=== PATIENT | female | born 1945 | race Caucasian/White ===

== ENCOUNTER 2016-11-10 15:19 | Inpatient (IN) | payer MEDICARE, OTHER ==
[~2016-11-10] VITALS: Ht 157.4 cm; Wt 50.3 kg
[2016-11-10 15:47] VITALS: BP 156/94
[2016-11-10 16:25] LABS: BASO # 0.1 10*3/uL (0.0-0.1); BASO % 0.9 % (0.0-1.0); EOS # 0.1 10*3/uL (0.0-0.4); EOS % 1.4 % (1.0-4.0); HEMATOCRIT 52.3 % (37.0-47.0); HEMOGLOBIN 17.2 g/dl (12.0-16.0); LYMPH # 1.6 10*3/uL (1.3-4.4); LYMPH % 17.9 % (27.0-41.0); MEAN CELL VOLUME 91.9 fl (81.0-99.0); MEAN CORPUSCULAR HGB 30.2 pg (27.0-31.0); MEAN CORPUSCULAR HGB CONC 32.9 g/dl (33.0-37.0); MEAN PLATELET VOLUME 9.8 fl (9.6-12.3); MONO # 0.6 10*3/uL (0.1-1.0); MONO % 6.8 % (3.0-9.0); NEUT # 6.3 10*3/uL (2.3-7.9); NEUT % 72.8 % (47.0-73.0); PLATELET COUNT AUTOMATED 175 10*3/uL (130-400); RED BLOOD COUNT 5.69 10*6/uL (4.10-5.10); RED CELL DISTRI WIDTH 13.7 % (0-14.5); WHITE BLOOD COUNT 8.7 10*3/uL (4.8-10.8)
[2016-11-10 16:34] LABS: PROTHROMBIN TIME 10.3 SECONDS (9.0-12.4)
[2016-11-10 16:41] LABS: ALBUMIN 3.8 gm/dl (3.1-4.5); ALKALINE PHOSPHATASE 100 U/L (45-117); BILIRUBIN, TOTAL 1.4 mg/dl (0.2-1.0); BUN 16 mg/dl (7-24); C-REACTIVE PROTEIN 0.74 MG/DL (0-0.3); CARBON DIOXIDE 25 mmol/L (21-32); CHLORIDE 104 mmol/L (98-107); CKMB 0.7 ng/ml (0.5-3.6); CPK 49 U/L (26-192); EST GLOM FILT AFRICAN AMERICAN > 60 ml/min; GLUCOSE 112 mg/dL (65-99); MAGNESIUM 2.4 mg/dL (1.5-2.1); POTASSIUM 4.7 mmol/L (3.5-5.1); SGOT/AST 18 IU/L (3-35); SGPT/ALT 17 U/L (12-78); SODIUM 139 mmol/L (136-145); TOTAL PROTEIN 7.4 gm/dL (6.4-8.2)
[2016-11-10 16:44] LABS: TROPONIN I < 0.015 ng/ml (<0.045)
[2016-11-10 17:01] LABS: BILIRUBIN NEGATIVE (NEGATIVE); BLOOD TRACE-LYSED (NEGATIVE); CLARITY CLEAR (CLEAR); COLOR YELLOW (YELLOW); GLUCOSE NEGATIVE (NEGATIVE); KETONE TRACE (NEGATIVE); LEUKO ESTERASE TRACE (NEGATIVE); NITRITE POSITIVE (NEGATIVE); PH 5.5 (5.0-9.0); PROTEIN NEGATIVE (NEGATIVE); SPECIFIC GRAVITY 1.015 (1.005-1.030); UROBILINOGEN 0.2 E.U./dl (0.2-1.0)
[2016-11-10 17:10] LABS: BACTERIA 2+; EPITHELIAL CELLS 35-40; URINE REFLEX COMMENT YES (NO)
[2016-11-10 18:22] LABS: LA>2 REFLEX 2 HR DRAW NOW
[2016-11-10 19:45] VITALS: BP 150/86
[2016-11-10 20:30] VITALS: BP 140/82; BP 140/86
[2016-11-10 20:53] LABS: BILIRUBIN NEGATIVE (NEGATIVE); BLOOD TRACE-LYSED (NEGATIVE); CLARITY CLEAR (CLEAR); COLOR YELLOW (YELLOW); GLUCOSE NEGATIVE (NEGATIVE); KETONE TRACE (NEGATIVE); LEUKO ESTERASE NEGATIVE (NEGATIVE); NITRITE POSITIVE (NEGATIVE); PROTEIN NEGATIVE (NEGATIVE); SPECIFIC GRAVITY <= 1.005 (1.005-1.030); UROBILINOGEN 0.2 E.U./dl (0.2-1.0)
[2016-11-10 21:02] LABS: BACTERIA TRACE; RBC 0-2 rbc/hpf (0-2); URINE REFLEX COMMENT YES (NO)
[2016-11-11] VITALS: BP 140/71
[2016-11-11 03:53] LABS: BASO % 0.5 % (0.0-1.0); EOS # 0.1 10*3/uL (0.0-0.4); EOS % 2.1 % (1.0-4.0); LYMPH % 17.1 % (27.0-41.0); MEAN CELL VOLUME 90.8 fl (81.0-99.0); MEAN CORPUSCULAR HGB 30.3 pg (27.0-31.0); MEAN CORPUSCULAR HGB CONC 33.4 g/dl (33.0-37.0); MEAN PLATELET VOLUME 9.9 fl (9.6-12.3); MONO # 0.5 10*3/uL (0.1-1.0); MONO % 9.1 % (3.0-9.0); PLATELET COUNT AUTOMATED 131 10*3/uL (130-400); RED BLOOD COUNT 4.88 10*6/uL (4.10-5.10); RED CELL DISTRI WIDTH 13.5 % (0-14.5); WHITE BLOOD COUNT 5.6 10*3/uL (4.8-10.8)
[2016-11-11 03:56] LABS: HEMATOCRIT 44.3 % (37.0-47.0); HEMOGLOBIN 14.8 g/dl (12.0-16.0)
[2016-11-11 04:10] LABS: ALKALINE PHOSPHATASE 78 U/L (45-117); BILIRUBIN, TOTAL 1.3 mg/dl (0.2-1.0); BUN 14 mg/dl (7-24); CARBON DIOXIDE 27 mmol/L (21-32); CHLORIDE 108 mmol/L (98-107); CHOLESTEROL 163 mg/dL (<200); EST GLOM FILT AFRICAN AMERICAN > 60 ml/min; GLUCOSE 99 mg/dL (65-99); HDL CHOLESTEROL 70 mg/dl (40-60); LDL CHOLESTEROL 75 mg/dL (9-159); SGOT/AST 8 IU/L (3-35); SGPT/ALT 16 U/L (12-78); SODIUM 143 mmol/L (136-145); TOTAL PROTEIN 5.8 gm/dL (6.4-8.2); TRIGLYCERIDES 88 mg/dl (<150); VLDL CHOLESTEROL 18 mg/dL (6-40)
[2016-11-11 04:11] LABS: FREE T4 1.13 ng/dl (0.76-1.46)
[2016-11-11 07:09] LABS: VITAMIN D, 25-HYDROXY 21.3 ng/mL (30-100)
[2016-11-11 07:10] LABS: FOLIC ACID 11.11 ng/mL (>5.38)
[2016-11-11 08:00] VITALS: BP 140/72
[2016-11-11 12:00] VITALS: BP 118/82
[2016-11-11 16:00] VITALS: BP 142/86
[2016-11-11 20:00] VITALS: BP 146/78
[2016-11-12] VITALS: BP 143/80
[2016-11-12 06:25] LABS: BASO # 0.1 10*3/uL (0.0-0.1); BASO % 0.9 % (0.0-1.0); EOS # 0.2 10*3/uL (0.0-0.4); EOS % 2.9 % (1.0-4.0); HEMATOCRIT 46.7 % (37.0-47.0); HEMOGLOBIN 15.2 g/dl (12.0-16.0); LYMPH # 1.9 10*3/uL (1.3-4.4); LYMPH % 27.9 % (27.0-41.0); MEAN CELL VOLUME 92.8 fl (81.0-99.0); MEAN CORPUSCULAR HGB 30.2 pg (27.0-31.0); MEAN CORPUSCULAR HGB CONC 32.5 g/dl (33.0-37.0); MEAN PLATELET VOLUME 9.8 fl (9.6-12.3); MONO # 0.6 10*3/uL (0.1-1.0); MONO % 8.3 % (3.0-9.0); NEUT # 4.1 10*3/uL (2.3-7.9); NEUT % 59.7 % (47.0-73.0); PLATELET COUNT AUTOMATED 164 10*3/uL (130-400); RED BLOOD COUNT 5.03 10*6/uL (4.10-5.10); RED CELL DISTRI WIDTH 13.7 % (0-14.5); WHITE BLOOD COUNT 6.9 10*3/uL (4.8-10.8)
[2016-11-12 07:04] LABS: CHLORIDE 111 mmol/L (98-107); POTASSIUM 3.7 mmol/L (3.5-5.1); SODIUM 146 mmol/L (136-145)
[2016-11-12 07:15] LABS: ALBUMIN 3.2 gm/dl (3.1-4.5); ALKALINE PHOSPHATASE 89 U/L (45-117); BILIRUBIN, TOTAL 0.6 mg/dl (0.2-1.0); BUN 10 mg/dl (7-24); CARBON DIOXIDE 26 mmol/L (21-32); EST GLOM FILT AFRICAN AMERICAN > 60 ml/min; GLUCOSE 95 mg/dL (65-99); SGOT/AST 14 IU/L (3-35); SGPT/ALT 16 U/L (12-78); TOTAL PROTEIN 6.4 gm/dL (6.4-8.2)
[2016-11-12 08:00] VITALS: BP 156/88
[2016-11-12 12:00] VITALS: BP 169/92
[2016-11-12 16:00] VITALS: BP 165/89
[2016-11-12] MEDS ORDERED: CIPRO500 MG PO (17:12)
[2016-11-12] MEDS ORDERED: D-1000 185 MG-11 TAB PO (17:12)
== END 2016-11-12 18:28 | disposition home or self-care (01) | DRG 871 ==
LOC: ED 15:19 → EDHOLD 18:52 → 4E 18:52
PROVIDERS: Emergency Medicine; Hospitalist; Internal Medicine Hospice and Palliative Medicine
DX: A41.9 Sepsis, unspecified organism (principal); N17.0 Acute kidney failure with tubular necrosis; E44.0 Moderate protein-calorie malnutrition; E83.41 Hypermagnesemia; D75.1 Secondary polycythemia; N39.0 Urinary tract infection, site not specified; R65.20 Severe sepsis without septic shock; R73.9 Hyperglycemia, unspecified; B96.20 Unspecified Escherichia coli [E. coli] as the cause of diseases classified elsewhere; Z90.49 Acquired absence of other specified parts of digestive tract; Z90.710 Acquired absence of both cervix and uterus; Z87.891 Personal history of nicotine dependence; Z82.3 Family history of stroke; Z82.49 Family history of ischemic heart disease and other diseases of the circulatory system; Z88.0 Allergy status to penicillin; Z68.20 Body mass index [BMI] 20.0-20.9, adult

== ENCOUNTER 2016-11-16 12:29 | Emergency (ER) | payer MEDICARE, OTHER ==
[~2016-11-16] VITALS: Wt 50.3 kg
[~2016-11-16 12:29] MED LIST: CIPRO500 MG PO; D-1000 185 MG-11 TAB PO
[2016-11-16 13:04] LABS: BASO % 0.4 % (0.0-1.0); EOS % 0.3 % (1.0-4.0); HEMATOCRIT 43.5 % (37.0-47.0); HEMOGLOBIN 14.6 g/dl (12.0-16.0); LYMPH # 1.3 10*3/uL (1.3-4.4); LYMPH % 12.9 % (27.0-41.0); MEAN CELL VOLUME 90.2 fl (81.0-99.0); MEAN CORPUSCULAR HGB 30.3 pg (27.0-31.0); MEAN CORPUSCULAR HGB CONC 33.6 g/dl (33.0-37.0); MONO # 0.7 10*3/uL (0.1-1.0); MONO % 7.3 % (3.0-9.0); NEUT # 7.9 10*3/uL (2.3-7.9); NEUT % 78.9 % (47.0-73.0); PLATELET COUNT AUTOMATED 149 10*3/uL (130-400); RED BLOOD COUNT 4.82 10*6/uL (4.10-5.10); RED CELL DISTRI WIDTH 13.6 % (0-14.5)
[2016-11-16 13:23] LABS: ALBUMIN 3.1 gm/dl (3.1-4.5); ALKALINE PHOSPHATASE 75 U/L (45-117); BILIRUBIN, TOTAL 1.2 mg/dl (0.2-1.0); BUN 11 mg/dl (7-24); CARBON DIOXIDE 28 mmol/L (21-32); CHLORIDE 105 mmol/L (98-107); EST GLOM FILT AFRICAN AMERICAN > 60 ml/min; GLUCOSE 102 mg/dL (65-99); POTASSIUM 3.8 mmol/L (3.5-5.1); SGOT/AST 14 IU/L (3-35); SGPT/ALT 20 U/L (12-78); SODIUM 143 mmol/L (136-145); TOTAL PROTEIN 6.1 gm/dL (6.4-8.2)
[2016-11-16 13:34] LABS: BILIRUBIN NEGATIVE (NEGATIVE); BLOOD NEGATIVE (NEGATIVE); CLARITY SL CLOUDY (CLEAR); COLOR YELLOW (YELLOW); GLUCOSE NEGATIVE (NEGATIVE); KETONE NEGATIVE (NEGATIVE); LEUKO ESTERASE 1+ (NEGATIVE); NITRITE NEGATIVE (NEGATIVE); PH 6.5 (5.0-9.0); PROTEIN NEGATIVE (NEGATIVE); SPECIFIC GRAVITY 1.015 (1.005-1.030); UROBILINOGEN 0.2 E.U./dl (0.2-1.0)
[2016-11-16 14:02] LABS: BACTERIA 1+; URINE REFLEX COMMENT YES (NO)
[2016-11-16] MEDS ORDERED: BACTRIM DS 8001 TA1 PO (14:26)
[2016-11-16] MEDS ORDERED: PYRIDIUM200 M1 PO (14:26)
== END 2016-11-16 14:36 | disposition home or self-care (01) ==
LOC: ED 12:29
PROVIDERS: Emergency Medicine
DX: N39.0 Urinary tract infection, site not specified (principal); Z90.49 Acquired absence of other specified parts of digestive tract; Z87.891 Personal history of nicotine dependence; Z88.0 Allergy status to penicillin

== ENCOUNTER → 2017-04-23 | Outpatient (CLI) | payer MEDICARE, OTHER ==
[~2017-04-23] MED LIST changes: +BACTRIM DS 8001 TA1 PO; +PYRIDIUM200 M1 PO
== END | disposition home or self-care (01) ==
LOC: MAMMO 11:52
DX: Z12.31 Encounter for screening mammogram for malignant neoplasm of breast (principal); Z13.820 Encounter for screening for osteoporosis; N95.9 Unspecified menopausal and perimenopausal disorder; Z90.710 Acquired absence of both cervix and uterus

== ENCOUNTER → 2017-09-02 | Outpatient (CLI) | payer MEDICARE, OTHER ==
[2017-09-02 11:41] LABS: BASO # 0.1 10*3/uL (0.0-0.1); BASO % 0.6 % (0.0-1.0); EOS % 0.1 % (1.0-4.0); HEMATOCRIT 47.8 % (37.0-47.0); LYMPH # 1.3 10*3/uL (1.3-4.4); LYMPH % 14.8 % (27.0-41.0); MEAN CORPUSCULAR HGB 30.1 pg (27.0-31.0); MEAN CORPUSCULAR HGB CONC 33.5 g/dl (33.0-37.0); MEAN PLATELET VOLUME 9.6 fl (9.6-12.3); MONO # 0.8 10*3/uL (0.1-1.0); NEUT # 6.8 10*3/uL (2.3-7.9); NEUT % 75.3 % (47.0-73.0); PLATELET COUNT AUTOMATED 210 10*3/uL (130-400); RED BLOOD COUNT 5.31 10*6/uL (4.10-5.10); RED CELL DISTRI WIDTH 13.5 % (0-14.5); WHITE BLOOD COUNT 9.1 10*3/uL (4.8-10.8)
[2017-09-02 12:29] LABS: ALKALINE PHOSPHATASE 105 U/L (45-117); BUN 14 mg/dl (7-24); CHLORIDE 96 mmol/L (98-107); CREATININE 0.93 mg/dL (0.55-1.02); POTASSIUM 3.3 mmol/L (3.5-5.1); SGOT/AST 16 IU/L (3-35); SGPT/ALT 20 U/L (12-78); SODIUM 138 mmol/L (136-145); TOTAL PROTEIN 7.2 gm/dL (6.4-8.2)
== END | disposition home or self-care (01) ==
LOC: LAB 11:18
PROVIDERS: Internal Medicine
DX: J20.9 Acute bronchitis, unspecified (principal)

== ENCOUNTER → 2018-08-25 | Outpatient (CLI) | payer MEDICARE, OTHER ==
[~2018-08-25] MED LIST changes: +DOXYCYCLINE100 M3 PO; +FOSAMAX70 M1 PO; +MUCINEX ER600 MG PO; +NORCO 5-325 TA1 EACH PO; +PREDNISONE10 MG PO; +PREDNISONE20 M1 PO; +PROVENTIL HFA6.7 GM INH; +TESSALON PERLE100 M1 PO; +VITAMIN D31000 UNIT PO; +ZITHROMAX500 MG PO
== END | disposition home or self-care (01) ==
LOC: RESCLI 12:44
DX: J43.9 Emphysema, unspecified (principal); R09.89 Other specified symptoms and signs involving the circulatory and respiratory systems; Z88.0 Allergy status to penicillin

== ENCOUNTER → 2018-08-31 | Outpatient (CLI) | payer MEDICARE, OTHER ==
[~2018-08-31] MED LIST changes: -DOXYCYCLINE100 M3 PO; -FOSAMAX70 M1 PO; -MUCINEX ER600 MG PO; -PREDNISONE10 MG PO; -PREDNISONE20 M1 PO; -PROVENTIL HFA6.7 GM INH; -TESSALON PERLE100 M1 PO; -VITAMIN D31000 UNIT PO; -ZITHROMAX500 MG PO
== END | disposition home or self-care (01) ==
LOC: RESCLI 01:48
DX: J20.9 Acute bronchitis, unspecified (principal); Z79.899 Other long term (current) drug therapy; Z88.0 Allergy status to penicillin; Z90.710 Acquired absence of both cervix and uterus

== ENCOUNTER → 2018-10-29 | Outpatient (CLI) | payer MEDICARE, OTHER ==
[~2018-10-29] MED LIST changes: +DOXYCYCLINE100 M3 PO; +FOSAMAX70 M1 PO; +MUCINEX ER600 MG PO; +PREDNISONE10 MG PO; +PREDNISONE20 M1 PO; +PROVENTIL HFA6.7 GM INH; +TESSALON PERLE100 M1 PO; +VITAMIN D31000 UNIT PO; +ZITHROMAX500 MG PO
[2018-10-29 13:04] LABS: BASO # 0.1 10*3/uL (0.0-0.1); BASO % 0.7 % (0.0-1.0); EOS % 0.6 % (1.0-4.0); HEMATOCRIT 51.9 % (37.0-47.0); HEMOGLOBIN 16.9 g/dl (12.0-16.0); LYMPH # 1.5 10*3/uL (1.3-4.4); LYMPH % 21.5 % (27.0-41.0); MEAN CELL VOLUME 93.3 fl (81.0-99.0); MEAN CORPUSCULAR HGB 30.4 pg (27.0-31.0); MEAN CORPUSCULAR HGB CONC 32.6 g/dl (33.0-37.0); MEAN PLATELET VOLUME 9.8 fl (9.6-12.3); MONO # 0.5 10*3/uL (0.1-1.0); MONO % 6.5 % (3.0-9.0); NEUT # 4.9 10*3/uL (2.3-7.9); NEUT % 70.6 % (47.0-73.0); PLATELET COUNT AUTOMATED 202 10*3/uL (130-400); RED BLOOD COUNT 5.56 10*6/uL (4.10-5.10); RED CELL DISTRI WIDTH 13.9 % (0-14.5); WHITE BLOOD COUNT 6.9 10*3/uL (4.8-10.8)
[2018-10-29 13:29] LABS: ALBUMIN 3.7 gm/dl (3.1-4.5); ALKALINE PHOSPHATASE 152 U/L (45-117); CHLORIDE 102 mmol/L (98-107); CHOLESTEROL 189 mg/dL (<200); CREATININE 1.01 mg/dL (0.55-1.02); HDL CHOLESTEROL 73 mg/dl (40-60); LDL CHOLESTEROL 93 mg/dL (9-159); POTASSIUM 4.2 mmol/L (3.5-5.1); SGOT/AST 16 IU/L (3-35); SGPT/ALT 20 U/L (12-78); SODIUM 139 mmol/L (136-145); TOTAL PROTEIN 7.4 gm/dL (6.4-8.2); TRIGLYCERIDES 114 mg/dl (<150); VLDL CHOLESTEROL 23 mg/dL (6-40)
[2018-10-29 13:36] LABS: BUN 25 mg/dl (7-24)
== END | disposition home or self-care (01) ==
LOC: LAB 11:17 → RESCLI 11:17
PROVIDERS: Student in an Organized Health Care Education/Training Program
DX: M80.00XD Age-related osteoporosis with current pathological fracture, unspecified site, subsequent encounter for fracture with routine healing (principal); I10 Essential (primary) hypertension; Z79.899 Other long term (current) drug therapy

== ENCOUNTER → 2018-11-03 | Outpatient (CLI) | payer MEDICARE, OTHER | END | disposition home or self-care (01) | LOC: RESCLI 02:39 | DX: J20.9 Acute bronchitis, unspecified (principal); E55.9 Vitamin D deficiency, unspecified; Z79.899 Other long term (current) drug therapy; Z90.710 Acquired absence of both cervix and uterus; Z88.0 Allergy status to penicillin ==

== ENCOUNTER → 2018-11-05 | Outpatient (CLI) | payer MEDICARE, OTHER ==
[2018-11-05] VITALS (12 sets, daily range): BP systolic 128–182; BP diastolic 74–113
[2018-11-05 12:49] LABS: ACT PARTIAL THROMBO TIME 23.1 SECONDS (20.8-31.5)
== END | disposition home or self-care (01) ==
LOC: LAB 03:00 → RAD 03:00
PROVIDERS: Internal Medicine
DX: M81.0 Age-related osteoporosis without current pathological fracture (principal); M79.609 Pain in unspecified limb; G95.29 Other cord compression; Z90.710 Acquired absence of both cervix and uterus; Z87.891 Personal history of nicotine dependence; Z78.0 Asymptomatic menopausal state; G89.29 Other chronic pain

== ENCOUNTER 2018-11-19 14:32 | Inpatient (IN) | payer MEDICARE, OTHER ==
--- NOTE | 2018-11-15 21:49 | NUR ---
ZOFRAN GIVEN FOR NAUSEA TYLENOL GIVEN PER ORDER FOR HEADACH RATED "6".
[~2018-11-19] VITALS: Ht 152.4 cm; Wt 47.8 kg
--- NOTE | ~2018-11-19 | CON ---
[place], [place] REPORT OF CONSULTATION NAME: RHETT GARCIA UNIT #: [id number] ROOM: 412 DOCTOR: LILY OSORIO MD,ATIYA BIRTHDATE: [birth year] DOS: 11/20/2018 PULMONARY CONSULTATION EVALUATION AND MANAGEMENT REASON FOR CONSULTATION: Abnormal finding CT scan of the chest with shortness of breath and others. HISTORY OF PRESENT ILLNESS: This 73-year-old white female patient admitted to the hospital complaining of chest pain, which she described across the mid portion of the chest without radiation, mild to moderate. She was also reported symptoms of shortness of breath occurring for the past 3 days. The patient denies symptoms of fever or chills. The patient does have symptoms of chest tightening. She denies symptoms of wheezing. Shortness of breath remains a major symptom with some nonproductive cough at times. REVIEW OF SYSTEMS: CONSTITUTIONAL: Fatigue and tiredness noted without any symptoms of fever or chills. EYES: Denied burning, redness, or tenderness. EARS, NOSE, AND THROAT: Denies sore throat, hoarseness, otalgia, postnasal drainage, or epistaxis. CARDIOVASCULAR: No anginal pain, edema, pain of lower extremities. GASTROINTESTINAL: Dysphagia, nausea, vomiting, diarrhea, abdominal pain, hematemesis, melena, or hematochezia. SKIN: Denies abnormal lesions or rashes. CENTRAL NERVOUS SYSTEM: Denies dizziness, headache, diplopia, or syncopal episodes. Remaining systems were reviewed. They were noted all negative. PAST MEDICAL HISTORY: The patient was noted as 1. COPD. 2. Compression fracture of the spine with vertebroplasty done 11/05/2018 of L1 compression fracture. 3. Vitamin D deficiency. PAST SURGICAL HISTORY: 1. Appendectomy. 2. Cholecystectomy. 3. Hysterectomy. 4. Vertebroplasty. SOCIAL HISTORY: The patient is , lives at home, has 3 children. Tobacco use noted at younger age half a pack of cigarettes per day, discontinued 6-10 years ago. FAMILY HISTORY: The patient's father at the age of 70 due to complication of CVA. Mother at the age of 70 year with complication of congestive heart failure. [place], [place] REPORT OF CONSULTATION NAME: RHETT GARCIA UNIT #: [id number] ROOM: [facility] DOCTOR: LILY OSORIO MD,ATIYA BIRTHDATE: [birth year] HOME MEDICATIONS: Noted use of Fosamax and vitamin D. CURRENT MEDICATIONS: Administered for patient on this hospitalization were noted as the use of levalbuterol, Fosamax, Mucinex, Lovenox for DVT prophylaxis, IV Rocephin, Zithromax and Solu-Medrol 40 mg b.i.d. DRUG ALLERGY HISTORY: ALLERGY TO PENICILLIN CAUSING SWELLING. LEVAQUIN CAUSING ITCHING OR REDNESS AT THE SITE OF THE INFUSION. PHYSICAL EXAMINATION: GENERAL: Height recorded on this admission with 5 feet 5 inches and the patient was sitting on the bed this morning of assessment. VITAL SIGNS: The recorded as a normal temperature. The respiratory rate recorded as 18-20. Heart rate of 124 to 93, blood pressure 166/82-117/56. Pulse oxygen saturation recorded at rest on room air is 92% saturation. Continue with further assessment. HEENT: Head was atraumatic. Eyes nonicterus. NECK: Supple. CARDIOVASCULAR: S1, S2 audible. LUNGS: The patient noted [id number] decreased breath sounds in the lungs bilaterally. ABDOMEN: Flat, soft, nontender. Bowel sounds present. EXTREMITIES: Without edema. MUSCULOSKELETAL: Without acute deformities. CENTRAL NERVOUS SYSTEM: Cranial nerves 2-12 intact. SKIN: No lesions or rashes. LABORATORY DATA: The patient's CBC on admission of 11/19/2018, WBC count normal, hemoglobin 17, hematocrit of 51.6. The lactic acid 2.7, followup of 1.8. The CMP that was done on admission, BUN 16, creatinine 1.04, glucose 146. CBC of this morning, the patient's WBC count was normal, hemoglobin and hematocrit normal, platelet count was normal. CMP of the patient this morning as normal BUN and creatinine. Glucose 146. The PT and PTT were noted yesterday as normal. The chest x-ray, 1 view was noted with hyperinflated changes without any acute pulmonary infiltration. CT scan of chest was also completed on 11/19/2018 without contrast, reviewed with evidence of severe emphysema with panlobular appearance noted diffusely in the lungs. In addition to that, findings reported by the radiologist report as well as findings in the lingula and both lower lobes. Central bronchiectasis was also noted in the lower lobe as well. IMPRESSION: 1. The patient will be currently admitted to the hospital with current findings noted with symptoms of shortness of breath related to acute exacerbation of chronic obstructive pulmonary disease with panlobular emphysema was noted related to chronic tobacco use. Possibility of alpha-1 antitrypsin deficiency should be considered as well and excluded appropriately. 2. Abnormal finding suggestive possibly of chronic infection including for Mycobacterium avium complex infection. 3. Bronchiectasis, most likely related to chronic infection also suggested [place], [place] REPORT OF CONSULTATION NAME: RHETT GARCIA UNIT #: [id number] ROOM: 412 DOCTOR: LILY OSORIO MD,AITYA BIRTHDATE: [birth year] related to the infection as well. PLAN OF MANAGEMENT: Continuation of current treatment as provided no acute immediate intervention will be necessary. Continue steroids, bronchodilators, and antibiotics. Outpatient assessment this morning with consideration of fibrobronchoscopy to exclude Mycobacterium avium complex infection. Other therapy, plan of management, care plan additional treatment changes will be made based on the progression of her illness. Continue abstain from tobacco use previously, outpatient alpha 1 antitrypsin level should be obtained. Thanks for allowing me to participate in the care of this patient. ATIYA BAUTISTA MD CM:CONSTR:REPORT OF CONSULTATION 1456 11/30/18 1013 interface
--- NOTE | ~2018-11-19 | PR ---
[place], [place] PROGRESS NOTE NAME: RHETT GARCIA UNIT #: [id number] ROOM: 412 DOCTOR: LILY OSORIO MD,ATIYA BIRTHDATE: [birth year] DOS: 11/22/2018 PULMONARY PROGRESS NOTE SUBJECTIVE: The patient has been doing well at this time with mild cough noted, which was nonproductive. Denies symptoms of chest pain, fever or chills. She was planned for echocardiogram to be done because edema of the lower extremities. OBJECTIVE: VITAL SIGNS: Normal temperature, respiratory rate 18, heart rate of 106, blood pressure 133/63. Pulse oxygen saturation on room air 92% saturation. HEENT: Shows head was atraumatic. Eyes nonicterus. NECK: Supple. CARDIOVASCULAR SYSTEM: S1, S2 audible. LUNGS: The patient was noted without any wheezing or crackles. ABDOMEN: Soft, nontender. Bowel sounds present. EXTREMITIES: No acute change. IMPRESSION: The patient who has been currently noted with: 1. Small centrilobular nodules, possibility of chronic infection can be excluded with the cough that has not been noted with any worse. 2. Acute exacerbation of chronic obstructive pulmonary disease. PLAN OF TREATMENT: No changes in plan of care at this time. Continue the patient's current therapy, plan of care as in progress. The patient could be discharged home at the present time. The patient has not been noted with any other acute symptoms. The patient could be discharged at this time. Discharge for this patient was discussed with Jena Carrero, nurse practitioner. ATIYA BAUTISTA MD CM:PNTRANS [id number] ATIYA OSORIO MD 11/23/18 0037 interface
--- NOTE | ~2018-11-19 | EKG ---
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
--- NOTE | ~2018-11-19 | EKG ---
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
--- NOTE | ~2018-11-19 | PR ---
[place], [place] PROGRESS NOTE [id number] UNIT #: [id number] ROOM: 412 DOCTOR: LILY OSORIO MD,ATIYA BIRTHDATE: [birth year] DOS: 11/21/2018 PULMONARY PROGRESS NOTE SUBJECTIVE: The patient reported reduction in symptoms of shortness of breath and cough this morning. Denies symptoms of fever or chills. Denies symptoms of hemoptysis. Denies symptoms of nausea or vomiting. OBJECTIVE: VITAL SIGNS: Normal temperature, respiratory rate 19, heart rate 56-100, blood pressure 130/68-111/58. Pulse oxygen saturation recorded on room air as 92% saturation. HEENT: Head is atraumatic. Eyes are nonicterus. NECK: Supple. CARDIOVASCULAR: S1 and S2 audible. LUNGS: Noted without any wheeze or crackles at the present time. ABDOMEN: Soft, nontender. Bowel sounds are present. EXTREMITIES: No acute change. IMPRESSION: 1. Acute exacerbation of chronic obstructive pulmonary disease. 2. Bronchiectasis. 3. Centrilobular pulmonary nodule, possibility of chronic infection such as Mycobacterium avium complex infection as well. PLAN OF MANAGEMENT: Continue steroids, bronchodilators, and oxygen supplementation. Discharge planning per primary care attending and outpatient assessment will be planned. Supportive care therapy plan of management. ATIYA BAUTISTA MD CM:PNTRANS [phone] ATIYA OSORIO MD 11/22/18 0110 interface
--- NOTE | ~2018-11-19 | EKG ---
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
[~2018-11-19 14:32] MED LIST changes: -DOXYCYCLINE100 M3 PO; -FOSAMAX70 M1 PO; -MUCINEX ER600 MG PO; -PREDNISONE10 MG PO; -PREDNISONE20 M1 PO; -PROVENTIL HFA6.7 GM INH; -TESSALON PERLE100 M1 PO; -VITAMIN D31000 UNIT PO; -ZITHROMAX500 MG PO
[2018-11-19 14:36] VITALS: BP 175/85
[2018-11-19 14:44] LABS: BASO % 0.5 % (0.0-1.0); EOS # 0.1 10*3/uL (0.0-0.4); EOS % 0.8 % (1.0-4.0); HEMATOCRIT 51.6 % (37.0-47.0); LYMPH # 2.1 10*3/uL (1.3-4.4); LYMPH % 24.5 % (27.0-41.0); MEAN CORPUSCULAR HGB 30.6 pg (27.0-31.0); MEAN CORPUSCULAR HGB CONC 32.9 g/dl (33.0-37.0); MONO # 0.6 10*3/uL (0.1-1.0); MONO % 6.7 % (3.0-9.0); NEUT # 5.8 10*3/uL (2.3-7.9); NEUT % 67.4 % (47.0-73.0); PLATELET COUNT AUTOMATED 169 10*3/uL (130-400); RED BLOOD COUNT 5.55 10*6/uL (4.10-5.10); RED CELL DISTRI WIDTH 13.9 % (0-14.5); WHITE BLOOD COUNT 8.6 10*3/uL (4.8-10.8)
[2018-11-19 14:53] LABS: ACT PARTIAL THROMBO TIME 23.4 SECONDS (20.8-31.5); INTERNATIONAL NORM RATIO 0.9 (2.0-3.5)
[2018-11-19 15:00] LABS: ALBUMIN 3.4 gm/dl (3.1-4.5); ALKALINE PHOSPHATASE 128 U/L (45-117); BUN 16 mg/dl (7-24); CHLORIDE 104 mmol/L (98-107); CREATININE 1.04 mg/dL (0.55-1.02); POTASSIUM 3.7 mmol/L (3.5-5.1); SGOT/AST 12 IU/L (3-35); SGPT/ALT 17 U/L (12-78); SODIUM 140 mmol/L (136-145); TOTAL PROTEIN 7.1 gm/dL (6.4-8.2)
[2018-11-19 15:02] LABS: TROPONIN I < 0.015 ng/ml (<0.045)
[2018-11-19 15:16] VITALS: BP 142/67
[2018-11-19 16:02] VITALS: BP 146/67
[2018-11-19 17:21] VITALS: BP 145/77
[2018-11-19 17:30] VITALS: BP 166/82
--- NOTE | 2018-11-19 17:30 | NUR ---
A 73, admitted to , under the services of YORDAN Higginbotham DO with a diagnosis of CHEST PAIN. Chief complaint is INTERMITTENT SOB WITH CHEST PAIN SINCE 15TH OF THE MONTH AFTER SPINAL INFUSION. Patient arrived via stretcher from ER. Monitor applied. Initial assessment completed. Vital signs taken and recorded. YORDAN HIGGINBOTHAM DO notified of admission to the unit. Orders received. See assessment for past medical history, medications and allergies. Patient and/or family oriented to unit. [facility] visitation policy reviewed. Clothing/patient valuable form completed. IV HEP LOCK INTACT - FAMILY IN WAITING ROOM, PATIENT TO RADIOLOGY FOR CT BECKIE RILEY
[2018-11-19] MEDS ORDERED: VITAMIN D31000 UNIT PO (17:59)
[2018-11-19] MEDS ORDERED: FOSAMAX70 M1 PO (18:00)
[2018-11-19 18:32] LABS: BILIRUBIN NEGATIVE (NEGATIVE); BLOOD NEGATIVE (NEGATIVE); CLARITY SL CLOUDY (CLEAR); COLOR YELLOW (YELLOW); GLUCOSE NEGATIVE (NEGATIVE); KETONE NEGATIVE (NEGATIVE); LEUKO ESTERASE TRACE (NEGATIVE); NITRITE NEGATIVE (NEGATIVE); UROBILINOGEN 0.2 E.U./dl (0.2-1.0)
[2018-11-19 19:20] LABS: BACTERIA 1+; RBC 0-2 rbc/hpf (0-2)
--- NOTE | 2018-11-19 19:50 | NUR ---
Dr Suarez called about localized reaction to Levaquin with redness & itching withn 20 minutes of starting the antibiotic. IV tubing changed prior to starting IVF again.
[2018-11-19 20:00] VITALS: BP 133/55
--- NOTE | 2018-11-19 20:16 | NUR ---
CALLED DR BAUTISTA ABOUT CONSULT NO ORDERS RECEIVED AT THIS TIME.
--- NOTE | 2018-11-19 21:49 | NUR ---
ZOFRAN GIVEN FOR NAUSEA AND TYLENOL GIVEN FOR HEADACHE RATED "6".
--- NOTE | 2018-11-19 22:45 | NUR ---
ZOFRAN EFFECTIVE FOR NAUSEA AND TYLENOL EFFECTIVE FOR HEADACHE PAIN PER PT.
[2018-11-20] VITALS: BP 118/55
--- NOTE | 2018-11-20 00:54 | NUR ---
PT GIVEN AND INSTRUCTED ON A FLUTTER. PERFORMED WELL
--- NOTE | 2018-11-20 03:29 | NUR ---
24 HR chart check completed.
[2018-11-20 07:06] LABS: ALBUMIN 2.8 gm/dl (3.1-4.5); ALKALINE PHOSPHATASE 105 U/L (45-117); BUN 12 mg/dl (7-24); CHLORIDE 110 mmol/L (98-107); CHOLESTEROL 159 mg/dL (<200); CREATININE 1.06 mg/dL (0.55-1.02); HDL CHOLESTEROL 69 mg/dl (40-60); LDL CHOLESTEROL 76 mg/dL (9-159); PHOSPHOROUS 2.7 mg/dL (2.5-4.9); POTASSIUM 4.1 mmol/L (3.5-5.1); SGOT/AST 9 IU/L (3-35); SGPT/ALT 15 U/L (12-78); SODIUM 143 mmol/L (136-145); TOTAL PROTEIN 6.1 gm/dL (6.4-8.2); TRIGLYCERIDES 70 mg/dl (<150); VLDL CHOLESTEROL 14 mg/dL (6-40)
[2018-11-20 07:11] LABS: THYROID STIM HORMONE (HS) 0.545 uIU/ml (0.358-4.75)
[2018-11-20 07:21] LABS: MEAN CELL VOLUME 93.3 fl (81.0-99.0); MEAN CORPUSCULAR HGB 30.1 pg (27.0-31.0); MEAN CORPUSCULAR HGB CONC 32.2 g/dl (33.0-37.0); MEAN PLATELET VOLUME 10.2 fl (9.6-12.3); PLATELET COUNT AUTOMATED 141 10*3/uL (130-400); RED BLOOD COUNT 4.79 10*6/uL (4.10-5.10); RED CELL DISTRI WIDTH 14.2 % (0-14.5); WHITE BLOOD COUNT 6.5 10*3/uL (4.8-10.8)
[2018-11-20 07:32] LABS: HEMATOCRIT 44.7 % (37.0-47.0); HEMOGLOBIN 14.4 g/dl (12.0-16.0)
[2018-11-20 08:35] LABS: TOTAL CELLS COUNTED 100 #CELLS
[2018-11-20 08:36] LABS: PLATELET SUFFICIENCY NORMAL (NORMAL)
[2018-11-20 12:00] VITALS: BP 117/56
[2018-11-20 16:00] VITALS: BP 116/49
[2018-11-20 20:00] VITALS: BP 124/65
--- NOTE | 2018-11-20 21:56 | NUR ---
24 HR chart check completed.
[2018-11-21] VITALS: BP 111/56
[2018-11-21 06:33] LABS: BUN 18 mg/dl (7-24); CHLORIDE 109 mmol/L (98-107); CREATININE 0.98 mg/dL (0.55-1.02); POTASSIUM 4.2 mmol/L (3.5-5.1); SODIUM 142 mmol/L (136-145)
[2018-11-21 06:34] LABS: HEMOGLOBIN 14.3 g/dl (12.0-16.0); MEAN CORPUSCULAR HGB 30.9 pg (27.0-31.0); MEAN CORPUSCULAR HGB CONC 32.5 g/dl (33.0-37.0); MEAN PLATELET VOLUME 10.7 fl (9.6-12.3); PLATELET COUNT AUTOMATED 149 10*3/uL (130-400); RED BLOOD COUNT 4.63 10*6/uL (4.10-5.10); RED CELL DISTRI WIDTH 15.1 % (0-14.5); WHITE BLOOD COUNT 15.2 10*3/uL (4.8-10.8)
--- NOTE | 2018-11-21 06:58 | NUR ---
TYLENOL GIVEN PER ORDER FOR LOWER BACK PAIN RATED "8". SEE MAR.
[2018-11-21 08:18] LABS: TOTAL CELLS COUNTED 100 #CELLS
[2018-11-21 08:19] LABS: PLATELET SUFFICIENCY NORMAL (NORMAL)
--- NOTE | 2018-11-21 10:35 | NUR ---
PRN NORCO GIVEN FOR PT COMPLAINTS OF PAIN IN THE RIGHT LOWER BACK RATING IT 8/10. CALL LIGHT WITHIN REACH, WILL MONITOR
[2018-11-21 12:00] VITALS: BP 138/68
[2018-11-21 16:00] VITALS: BP 130/66
--- NOTE | 2018-11-21 19:40 | NUR ---
PT RESTING IN BED WITH VISITORS AT HER SIDE. RESP-EASY AND REGULAR. TOLERATING IV MEDICATION. CALL LIGHT IN REACH. SEE SHIFT ASSESSMENT
[2018-11-21 20:00] VITALS: BP 144/77
--- NOTE | 2018-11-21 20:00 | NUR ---
IV started right forearm with #22 angiocath after 1 attempts. The IV site was prepped with Chloraprep. Heparin lock attached. Sterile dressing applied. Patient tolerated precedure well. Procedure performed according to [facility] policy & procedure. MARIA T VAZQUEZ
--- NOTE | 2018-11-21 22:45 | NUR ---
MEDICATED WITH NORCO FOR C/O OF LOWER BACK/RIGHT HIP PAIN. RATES PAIN 6 ON PAIN SCALE 0-10. CALL LIGHT IN REACH.
[2018-11-22] VITALS: BP 134/74
--- NOTE | 2018-11-22 00:10 | NUR ---
SLEEPING IN BED. AWAKENS EASILY. MEDICATION EFFECTIVE. CALL LIGHT IN REACH. SEE SHIFT ASSESSMENT.
--- NOTE | 2018-11-22 04:00 | NUR ---
SLEEPING IN BED. RESP-EASY AND REGULAR. CALL LIGHT IN REACH.
[2018-11-22 06:30] LABS: HEMATOCRIT 44.7 % (37.0-47.0); HEMOGLOBIN 14.5 g/dl (12.0-16.0); MEAN CELL VOLUME 94.9 fl (81.0-99.0); MEAN CORPUSCULAR HGB 30.8 pg (27.0-31.0); MEAN CORPUSCULAR HGB CONC 32.4 g/dl (33.0-37.0); MEAN PLATELET VOLUME 10.6 fl (9.6-12.3); PLATELET COUNT AUTOMATED 159 10*3/uL (130-400); RED BLOOD COUNT 4.71 10*6/uL (4.10-5.10); RED CELL DISTRI WIDTH 15.2 % (0-14.5); WHITE BLOOD COUNT 12.4 10*3/uL (4.8-10.8)
--- NOTE | 2018-11-22 06:30 | NUR ---
PT RESTING IN BED WITH EYES CLOSED. RESP-EASY AND REGULAR. CALL LIGHT IN REACH.
[2018-11-22 06:46] LABS: BUN 21 mg/dl (7-24); CHLORIDE 108 mmol/L (98-107); CREATININE 0.96 mg/dL (0.55-1.02); POTASSIUM 4.8 mmol/L (3.5-5.1); SODIUM 140 mmol/L (136-145)
[2018-11-22 07:15] LABS: PLATELET SUFFICIENCY NORMAL (NORMAL); TOTAL CELLS COUNTED 100 #CELLS
[2018-11-22 08:00] VITALS: BP 133/63
--- NOTE | 2018-11-22 08:20 | NUR ---
SITTING UP IN BED EATING BREAKFAST. TOLERATED ROUTINE MED WITH NO PROBLEM. NO C/O AT THIS TIME. CALL LIGHT IN REACH. SEE SHIFT ASSESSMENT.
--- NOTE | 2018-11-22 09:00 | NUR ---
Compliance Field Technician in to talk to patient. Patient states lives at home with family. There are few steps in the home. Physician: [facility] Home health services: none Patient's level of ADLs: INDEPENDENT Patient has working utilities: all working DME: none Follow-up physician's appointment after d/c: will be made by hospitalist nurse director upon discharge Does patient want to access PORTAL?: no Discharge plan discussed with patient, patient lives at home with family, is independent in adls and ambulation, patient states she will be going home when able and denies any home needs. CANDIDA LONGO
[2018-11-22] MEDS ORDERED: PREDNISONE10 MG PO (11:10)
[2018-11-22] MEDS ORDERED: MUCINEX ER600 MG PO (11:10)
[2018-11-22] MEDS ORDERED: ZITHROMAX500 MG PO (11:10)
--- NOTE | 2018-11-22 15:30 | NUR ---
Discharge instructions reviewed with patient/family. Patient receptive and verbalizes understanding. Follow-up care arranged. Written instructions given to patient/family. EDWARD PAK
[2019-01-30] MEDS ORDERED: DOXYCYCLINE100 M3 PO (14:03)
[2019-01-30] MEDS ORDERED: PREDNISONE20 M1 PO (14:03)
[2019-01-30] MEDS ORDERED: PROVENTIL HFA6.7 GM INH (14:03)
[2019-01-30] MEDS ORDERED: TESSALON PERLE100 M1 PO (14:03)
== END 2018-11-22 15:30 | disposition home or self-care (01) | DRG 190 ==
LOC: ED 14:32 → EDHOLD 17:03 → 4E 17:03
PROVIDERS: Emergency Medicine; Family Medicine; Internal Medicine; ADMIT Internal Medicine
DX: J43.9 Emphysema, unspecified (principal); J18.9 Pneumonia, unspecified organism; E87.2 Acidosis; E44.0 Moderate protein-calorie malnutrition; D75.1 Secondary polycythemia; R73.9 Hyperglycemia, unspecified; J43.1 Panlobular emphysema; E55.9 Vitamin D deficiency, unspecified; J47.9 Bronchiectasis, uncomplicated; R74.8 Abnormal levels of other serum enzymes; R91.8 Other nonspecific abnormal finding of lung field; Z68.20 Body mass index [BMI] 20.0-20.9, adult; Z87.81 Personal history of (healed) traumatic fracture; Z90.49 Acquired absence of other specified parts of digestive tract; Z90.710 Acquired absence of both cervix and uterus; Z87.891 Personal history of nicotine dependence; Z82.49 Family history of ischemic heart disease and other diseases of the circulatory system; Z82.3 Family history of stroke; Z88.0 Allergy status to penicillin; Z88.1 Allergy status to other antibiotic agents; Z79.899 Other long term (current) drug therapy

== ENCOUNTER → 2018-12-01 | Outpatient (CLI) | payer MEDICARE, OTHER ==
[~2018-12-01] MED LIST changes: +DOXYCYCLINE100 M3 PO; +FOSAMAX70 M1 PO; +MUCINEX ER600 MG PO; +PREDNISONE10 MG PO; +PREDNISONE20 M1 PO; +PROVENTIL HFA6.7 GM INH; +TESSALON PERLE100 M1 PO; +VITAMIN D31000 UNIT PO; +ZITHROMAX500 MG PO
[2018-12-01 12:52] LABS: BILIRUBIN NEGATIVE (NEGATIVE); BLOOD TRACE-INTACT (NEGATIVE); CLARITY CLEAR (CLEAR); COLOR YELLOW (YELLOW); GLUCOSE NEGATIVE (NEGATIVE); KETONE NEGATIVE (NEGATIVE); LEUKO ESTERASE NEGATIVE (NEGATIVE); NITRITE NEGATIVE (NEGATIVE); PH 5.5 (5.0-9.0); SPECIFIC GRAVITY <= 1.005 (1.005-1.030); UROBILINOGEN 0.2 E.U./dl (0.2-1.0)
[2018-12-01 13:21] LABS: RBC 0-2 rbc/hpf (0-2); WBC 0-2 wbc/hpf (0-5)
== END | disposition home or self-care (01) ==
LOC: RESCLI 02:40
PROVIDERS: Student in an Organized Health Care Education/Training Program
DX: Z09 Encounter for follow-up examination after completed treatment for conditions other than malignant neoplasm (principal); R35.0 Frequency of micturition; J43.9 Emphysema, unspecified; F32.9 Major depressive disorder, single episode, unspecified; F41.9 Anxiety disorder, unspecified; R30.0 Dysuria; M54.5 Low back pain; G89.29 Other chronic pain; I10 Essential (primary) hypertension; M81.0 Age-related osteoporosis without current pathological fracture; Z88.0 Allergy status to penicillin; Z79.899 Other long term (current) drug therapy

== ENCOUNTER → 2019-02-09 | Outpatient (CLI) | payer MEDICARE, OTHER | END | disposition home or self-care (01) | LOC: RESCLI 02:02 | DX: M80.00XD Age-related osteoporosis with current pathological fracture, unspecified site, subsequent encounter for fracture with routine healing (principal); F32.9 Major depressive disorder, single episode, unspecified; G47.34 Idiopathic sleep related nonobstructive alveolar hypoventilation; J43.9 Emphysema, unspecified; F41.9 Anxiety disorder, unspecified; R63.6 Underweight; G89.29 Other chronic pain; I10 Essential (primary) hypertension; Z79.899 Other long term (current) drug therapy; Z87.891 Personal history of nicotine dependence ==

== ENCOUNTER → 2019-04-20 | Outpatient (CLI) | payer MEDICARE, OTHER | END | disposition home or self-care (01) | LOC: RESCLI 00:57 | DX: E55.9 Vitamin D deficiency, unspecified (principal); F32.9 Major depressive disorder, single episode, unspecified; G47.34 Idiopathic sleep related nonobstructive alveolar hypoventilation; J43.9 Emphysema, unspecified; G89.29 Other chronic pain; F41.9 Anxiety disorder, unspecified; Z79.899 Other long term (current) drug therapy ==

== ENCOUNTER → 2019-06-29 | Outpatient (CLI) | payer MEDICARE, OTHER ==
[~2019-06-29] MED LIST changes: +CYCLOBENZAPRINE10 MG PO; +PERCOCET 5-3251 EACH PO
[2019-06-29 14:10] LABS: BILIRUBIN NEGATIVE (NEGATIVE); BLOOD NEGATIVE (NEGATIVE); CLARITY CLEAR (CLEAR); COLOR YELLOW (YELLOW); GLUCOSE NEGATIVE (NEGATIVE); KETONE NEGATIVE (NEGATIVE); LEUKO ESTERASE 1+ (NEGATIVE); NITRITE POSITIVE (NEGATIVE); SPECIFIC GRAVITY 1.015 (1.005-1.030); UROBILINOGEN 0.2 E.U./dl (0.2-1.0)
[2019-06-29 14:20] LABS: BACTERIA 4+; WBC 41-50 wbc/hpf (0-5)
== END | disposition home or self-care (01) ==
LOC: RESCLI 00:46
PROVIDERS: Student in an Organized Health Care Education/Training Program
DX: Z23 Encounter for immunization (principal); R39.11 Hesitancy of micturition; J43.9 Emphysema, unspecified; G47.34 Idiopathic sleep related nonobstructive alveolar hypoventilation; M80.00XD Age-related osteoporosis with current pathological fracture, unspecified site, subsequent encounter for fracture with routine healing; G89.29 Other chronic pain; I10 Essential (primary) hypertension; M19.90 Unspecified osteoarthritis, unspecified site; Z87.891 Personal history of nicotine dependence

== ENCOUNTER 2019-07-20 12:37 | Emergency (ER) | payer MEDICARE, OTHER ==
[~2019-07-20] VITALS: Ht 152.4 cm; Wt 48.1 kg
[~2019-07-20 12:37] MED LIST changes: -CYCLOBENZAPRINE10 MG PO; -PERCOCET 5-3251 EACH PO
[2019-07-20 13:48] LABS: BASO % 0.5 % (0.0-1.0); EOS # 0.1 10*3/uL (0.0-0.4); EOS % 1.1 % (1.0-4.0); HEMATOCRIT 46.1 % (37.0-47.0); LYMPH # 1.6 10*3/uL (1.3-4.4); LYMPH % 23.4 % (27.0-41.0); MEAN CELL VOLUME 92.8 fl (81.0-99.0); MEAN CORPUSCULAR HGB 30.2 pg (27.0-31.0); MEAN CORPUSCULAR HGB CONC 32.5 g/dl (33.0-37.0); MEAN PLATELET VOLUME 9.9 fl (9.6-12.3); MONO # 0.5 10*3/uL (0.1-1.0); MONO % 7.1 % (3.0-9.0); NEUT # 4.5 10*3/uL (2.3-7.9); NEUT % 67.6 % (47.0-73.0); PLATELET COUNT AUTOMATED 162 10*3/uL (130-400); RED BLOOD COUNT 4.97 10*6/uL (4.10-5.10); RED CELL DISTRI WIDTH 14.1 % (0-14.5); WHITE BLOOD COUNT 6.6 10*3/uL (4.8-10.8)
[2019-07-20 14:05] LABS: ALBUMIN 3.5 gm/dl (3.1-4.5); ALKALINE PHOSPHATASE 75 U/L (45-117); BUN 20 mg/dl (7-24); CHLORIDE 106 mmol/L (98-107); CREATININE 1.03 mg/dL (0.55-1.02); POTASSIUM 4.1 mmol/L (3.5-5.1); SGOT/AST 14 IU/L (3-35); SGPT/ALT 13 U/L (12-78); SODIUM 138 mmol/L (136-145); TOTAL PROTEIN 6.3 gm/dL (6.4-8.2)
[2019-07-20] MEDS ORDERED: CYCLOBENZAPRINE10 MG PO (14:45)
[2019-07-20] MEDS ORDERED: PERCOCET 5-3251 EACH PO (14:45)
== END 2019-07-20 14:44 | disposition home or self-care (01) ==
LOC: ED 12:37
PROVIDERS: Emergency Medicine
DX: S29.012A Strain of muscle and tendon of back wall of thorax, initial encounter (principal); J44.9 Chronic obstructive pulmonary disease, unspecified; Z88.0 Allergy status to penicillin; Z88.1 Allergy status to other antibiotic agents; Z79.899 Other long term (current) drug therapy; Z87.891 Personal history of nicotine dependence; X58.XXXA Exposure to other specified factors, initial encounter; Y93.89 Activity, other specified; Y92.89 Other specified places as the place of occurrence of the external cause; Y99.8 Other external cause status

== ENCOUNTER → 2019-08-01 | Outpatient (CLI) | payer MEDICARE, OTHER ==
[~2019-08-01] MED LIST changes: +CYCLOBENZAPRINE10 MG PO; +LEVAQUIN750 M1 PO; +LISINOPRIL2.5 MG PO; +PERCOCET 5-3251 EACH PO; +SEREVENT DISKU50 MCG INH; +SPIRIVA18 MCG PO; +ZITHROMAX250 MG PO
== END | disposition home or self-care (01) ==
LOC: RESCLI 10:46
DX: J43.9 Emphysema, unspecified (principal); G47.34 Idiopathic sleep related nonobstructive alveolar hypoventilation; E55.9 Vitamin D deficiency, unspecified; G89.29 Other chronic pain; R39.11 Hesitancy of micturition; M54.6 Pain in thoracic spine; Z79.899 Other long term (current) drug therapy; Z88.0 Allergy status to penicillin

== ENCOUNTER 2019-08-05 00:35 | Inpatient (IN) | payer MEDICARE, OTHER ==
[~2019-08-05] VITALS: Ht 144.8 cm; Wt 48.1 kg
[~2019-08-05 00:35] MED LIST changes: -LEVAQUIN750 M1 PO; -LISINOPRIL2.5 MG PO; -SEREVENT DISKU50 MCG INH; -SPIRIVA18 MCG PO; -ZITHROMAX250 MG PO
[2019-08-05 14:45] VITALS: BP 157/94
--- NOTE | 2019-08-05 14:45 | NUR ---
A 73, admitted to , under the services of KI Mo DO with a diagnosis of COPD,CHEST PAIN. Chief complaint is CHEST PAIN RADIATING TO LEFT JAW. Patient arrived via ambulatory from [place]. Monitor applied. Initial assessment completed. Vital signs taken and recorded. KI MO DO notified of admission to the unit. Orders received. See assessment for past medical history, medications and allergies. Patient and/or family oriented to unit. [facility]. Clothing/patient valuable form completed. ZHANNA WAGGONER
[2019-08-05] MEDS ORDERED: SEREVENT DISKU50 MCG INH (15:44)
[2019-08-05] MEDS ORDERED: SPIRIVA18 MCG PO (15:45)
[2019-08-05] MEDS ORDERED: CYCLOBENZAPRINE10 MG PO (15:48)
[2019-08-05] MEDS ORDERED: PERCOCET 5-3251 EACH PO (15:49)
[2019-08-05] MEDS ORDERED: LEVAQUIN750 M1 PO (15:50)
[2019-08-05 16:00] VITALS: BP 157/94
[2019-08-05 17:02] LABS: HEMATOCRIT 47.5 % (37.0-47.0); HEMOGLOBIN 15.9 g/dl (12.0-16.0); MEAN CELL VOLUME 91.7 fl (81.0-99.0); MEAN CORPUSCULAR HGB 30.7 pg (27.0-31.0); MEAN CORPUSCULAR HGB CONC 33.5 g/dl (33.0-37.0); MEAN PLATELET VOLUME 10.9 fl (9.6-12.3); PLATELET COUNT AUTOMATED 137 10*3/uL (130-400); RED BLOOD COUNT 5.18 10*6/uL (4.10-5.10); RED CELL DISTRI WIDTH 14.1 % (0-14.5); WHITE BLOOD COUNT 7.6 10*3/uL (4.8-10.8)
[2019-08-05 17:14] LABS: ALBUMIN 3.6 gm/dl (3.1-4.5); ALKALINE PHOSPHATASE 100 U/L (45-117); BUN 22 mg/dl (7-24); CHLORIDE 103 mmol/L (98-107); CREATININE 1.03 mg/dL (0.55-1.02); POTASSIUM 4.1 mmol/L (3.5-5.1); SGOT/AST 15 IU/L (3-35); SGPT/ALT 22 U/L (12-78); SODIUM 136 mmol/L (136-145); TOTAL PROTEIN 6.8 gm/dL (6.4-8.2)
[2019-08-05 17:30] LABS: BILIRUBIN NEGATIVE (NEGATIVE); BLOOD NEGATIVE (NEGATIVE); CLARITY CLEAR (CLEAR); COLOR YELLOW (YELLOW); GLUCOSE NEGATIVE (NEGATIVE); KETONE NEGATIVE (NEGATIVE); LEUKO ESTERASE NEGATIVE (NEGATIVE); NITRITE NEGATIVE (NEGATIVE); SPECIFIC GRAVITY >= 1.030 (1.005-1.030); UROBILINOGEN 0.2 E.U./dl (0.2-1.0)
[2019-08-05 17:30] LABS: PLATELET SUFFICIENCY NORMAL (NORMAL); TOTAL CELLS COUNTED 100 #CELLS
[2019-08-05 17:39] LABS: EPITHELIAL CELLS 41-50
[2019-08-05 17:40] LABS: BACTERIA TRACE; WBC 0-2 wbc/hpf (0-5)
[2019-08-05 20:00] VITALS: BP 156/93
--- NOTE | 2019-08-05 20:30 | NUR ---
AAOX3 SITTING UP IN BED. HEP LOCK INTACT TO LEFT ANTECUBITAL; SITE ASYMPTOMATIC. LUNGS DIMINISHED BILATERALLY WITH AN OCCASIONAL DRY COUGH NOTED. PULSE OX 98% ON ROOM AIR. PT. DENIES PAIN OR DISCOMFORT AT THIS TIME. CALL LIGHT WITHIN REACH; BED IN LOW LOCKED POSITION.
[2019-08-06] VITALS: BP 170/86
[2019-08-06 02:00] VITALS: BP 127/69
--- NOTE | 2019-08-06 02:00 | NUR ---
RESTING IN BED WITH EYES CLOSED. BED IN LOW LOCKED POSITION; CALL LIGHT WITHIN REACH.
--- NOTE | 2019-08-06 03:00 | NUR ---
BLOOD PRESSURE MEDICATION GIVEN EARLIER EFFECTIVE; SEE FLOW SHEET.
[2019-08-06 07:50] LABS: BASO % 0.1 % (0.0-1.0); HEMATOCRIT 46.3 % (37.0-47.0); LYMPH # 1.3 10*3/uL (1.3-4.4); LYMPH % 13.5 % (27.0-41.0); MEAN CELL VOLUME 91.9 fl (81.0-99.0); MEAN CORPUSCULAR HGB 29.8 pg (27.0-31.0); MEAN CORPUSCULAR HGB CONC 32.4 g/dl (33.0-37.0); MEAN PLATELET VOLUME 9.7 fl (9.6-12.3); MONO # 0.7 10*3/uL (0.1-1.0); MONO % 6.8 % (3.0-9.0); NEUT # 7.6 10*3/uL (2.3-7.9); NEUT % 79.2 % (47.0-73.0); RED BLOOD COUNT 5.04 10*6/uL (4.10-5.10); RED CELL DISTRI WIDTH 14.4 % (0-14.5); WHITE BLOOD COUNT 9.6 10*3/uL (4.8-10.8)
[2019-08-06 08:00] VITALS: BP 168/98
[2019-08-06 08:02] LABS: PLATELET COUNT AUTOMATED 193 10*3/uL (130-400)
--- NOTE | 2019-08-06 08:06 | NUR ---
CATAPRESS 0.2MG PO GIVEN FOR BP OF 168/98.
[2019-08-06 08:17] LABS: ALBUMIN 3.1 gm/dl (3.1-4.5); ALKALINE PHOSPHATASE 87 U/L (45-117); BUN 21 mg/dl (7-24); CHLORIDE 106 mmol/L (98-107); CHOLESTEROL 166 mg/dL (<200); CREATININE 1.06 mg/dL (0.55-1.02); FREE T4 1.22 ng/dl (0.76-1.46); HDL CHOLESTEROL 75 mg/dl (40-60); LDL CHOLESTEROL 75 mg/dL (9-159); PHOSPHOROUS 2.7 mg/dL (2.5-4.9); POTASSIUM 4.3 mmol/L (3.5-5.1); SGOT/AST 12 IU/L (3-35); SGPT/ALT 19 U/L (12-78); SODIUM 138 mmol/L (136-145); TOTAL PROTEIN 6.1 gm/dL (6.4-8.2); TRIGLYCERIDES 82 mg/dl (<150); VLDL CHOLESTEROL 16 mg/dL (6-40)
[2019-08-06 08:43] LABS: VITAMIN D, 25-HYDROXY 36.4 ng/mL (30-100)
[2019-08-06] MEDS ORDERED: PREDNISONE10 MG PO (11:20)
[2019-08-06] MEDS ORDERED: ZITHROMAX250 MG PO (11:20)
[2019-08-06] MEDS ORDERED: LISINOPRIL2.5 MG PO (11:23)
--- NOTE | 2019-08-06 12:30 | NUR ---
Discharge instructions reviewed with patient/family. Patient receptive and verbalizes understanding. Follow-up care arranged. Written instructions given to patient/family. EMILIA DUDLEY
--- NOTE | 2019-08-08 08:39 | NUR ---
Nursing screen received 08/05/19 and patient discharged 08/06/19 before screen completed. Thank you. Jeanine Arndt OTR/L
== END 2019-08-06 12:30 | disposition home or self-care (01) | DRG 206 ==
LOC: RESCLI 00:35 → 4E 14:23
PROVIDERS: Registered Nurse; ADMIT Emergency Medicine
DX: M94.0 Chondrocostal junction syndrome [Tietze] (principal); E55.9 Vitamin D deficiency, unspecified; J44.9 Chronic obstructive pulmonary disease, unspecified; M81.0 Age-related osteoporosis without current pathological fracture; Z90.710 Acquired absence of both cervix and uterus; Z90.49 Acquired absence of other specified parts of digestive tract; Z87.891 Personal history of nicotine dependence; Z82.3 Family history of stroke; Z82.49 Family history of ischemic heart disease and other diseases of the circulatory system; Z88.1 Allergy status to other antibiotic agents; Z88.0 Allergy status to penicillin; Z99.81 Dependence on supplemental oxygen; Z79.899 Other long term (current) drug therapy

== ENCOUNTER → 2019-08-12 | Outpatient (CLI) | payer MEDICARE, OTHER ==
[~2019-08-12] MED LIST changes: +LEVAQUIN750 M1 PO; +LISINOPRIL2.5 MG PO; +SEREVENT DISKU50 MCG INH; +SPIRIVA18 MCG PO; +ZITHROMAX250 MG PO
== END | disposition home or self-care (01) ==
LOC: RESCLI 00:40
DX: M48.55XA Collapsed vertebra, not elsewhere classified, thoracolumbar region, initial encounter for fracture (principal); I10 Essential (primary) hypertension; F32.9 Major depressive disorder, single episode, unspecified; E55.9 Vitamin D deficiency, unspecified; N32.81 Overactive bladder; J43.9 Emphysema, unspecified; F41.9 Anxiety disorder, unspecified; G89.29 Other chronic pain; G47.34 Idiopathic sleep related nonobstructive alveolar hypoventilation; M81.0 Age-related osteoporosis without current pathological fracture; I20.9 Angina pectoris, unspecified; R39.11 Hesitancy of micturition; Z79.899 Other long term (current) drug therapy; Z90.710 Acquired absence of both cervix and uterus; Z87.891 Personal history of nicotine dependence

== ENCOUNTER 2019-08-23 15:07 | Emergency (ER) | payer MEDICARE, OTHER ==
[~2019-08-23] VITALS: Ht 157.4 cm; Wt 59.0 kg
[2019-08-23 15:29] LABS: BASO % 0.3 % (0.0-1.0); EOS # 0.1 10*3/uL (0.0-0.4); HEMATOCRIT 47.8 % (37.0-47.0); HEMOGLOBIN 15.6 g/dl (12.0-16.0); LYMPH # 1.9 10*3/uL (1.3-4.4); LYMPH % 23.9 % (27.0-41.0); MEAN CELL VOLUME 92.6 fl (81.0-99.0); MEAN CORPUSCULAR HGB 30.2 pg (27.0-31.0); MEAN CORPUSCULAR HGB CONC 32.6 g/dl (33.0-37.0); MEAN PLATELET VOLUME 9.3 fl (9.6-12.3); MONO # 0.7 10*3/uL (0.1-1.0); MONO % 8.8 % (3.0-9.0); NEUT # 5.2 10*3/uL (2.3-7.9); NEUT % 65.7 % (47.0-73.0); PLATELET COUNT AUTOMATED 145 10*3/uL (130-400); RED BLOOD COUNT 5.16 10*6/uL (4.10-5.10); RED CELL DISTRI WIDTH 14.8 % (0-14.5); WHITE BLOOD COUNT 7.8 10*3/uL (4.8-10.8)
[2019-08-23 15:46] LABS: ALBUMIN 3.3 gm/dl (3.1-4.5); ALKALINE PHOSPHATASE 85 U/L (45-117); BUN 23 mg/dl (7-24); CHLORIDE 101 mmol/L (98-107); CREATININE 1.16 mg/dL (0.55-1.02); POTASSIUM 4.5 mmol/L (3.5-5.1); SGOT/AST 10 IU/L (3-35); SGPT/ALT 22 U/L (12-78); SODIUM 139 mmol/L (136-145)
[2019-08-23 15:48] LABS: ACT PARTIAL THROMBO TIME 24.8 SECONDS (20.0-32.1); INTERNATIONAL NORM RATIO 0.9 (2.0-3.5)
[2019-08-23 15:53] LABS: TROPONIN I < 0.015 ng/ml (<0.045)
== END 2019-08-23 19:00 | disposition home or self-care (01) ==
LOC: ED 15:07
PROVIDERS: Emergency Medicine
DX: R07.89 Other chest pain (principal); R68.84 Jaw pain; M81.0 Age-related osteoporosis without current pathological fracture; J44.9 Chronic obstructive pulmonary disease, unspecified; Z87.891 Personal history of nicotine dependence; Z90.49 Acquired absence of other specified parts of digestive tract; Z88.0 Allergy status to penicillin; Z88.1 Allergy status to other antibiotic agents; Z79.2 Long term (current) use of antibiotics; Z79.899 Other long term (current) drug therapy; Z90.710 Acquired absence of both cervix and uterus

== ENCOUNTER → 2019-09-06 | Outpatient (CLI) | payer MEDICARE, OTHER | END | disposition home or self-care (01) | LOC: RESCLI 00:47 | DX: F41.9 Anxiety disorder, unspecified (principal); F32.9 Major depressive disorder, single episode, unspecified; E55.9 Vitamin D deficiency, unspecified; J43.9 Emphysema, unspecified; I20.8 Other forms of angina pectoris; I10 Essential (primary) hypertension; Z79.899 Other long term (current) drug therapy; Z90.710 Acquired absence of both cervix and uterus; Z88.0 Allergy status to penicillin ==

== ENCOUNTER → 2019-10-19 | Outpatient (CLI) | payer MEDICARE, OTHER ==
[~2019-10-19] MED LIST changes: +ZOLOFT25 MG PO
--- NOTE | 2019-10-19 07:59 | NUR ---
INFORMED CONSENT OBTAINED FOR A LEXISCAN STRESS TEST WITH DR. MALCOLM. RESTING EKG NSR-ST WITH A HT RT 95 AND A BP OF 142/80. BREATH SOUNDS DIMINISHED WITH RHONCHI. SPO2 95% VIA RA. COMPLETED ONE MINUTE OF A LEXISCAN PROTOCOL RECEIVING LEXISCAN 0.4 MG OVER 10 SECONDS. DEVELOPED SOB THAT WAS RELIEVED IN RECOVERY. HAD A PEAK HT RT OF 113, WITH A BP OF 138/64. LAST RECOVERY HT RT OF 108, WITH A BP OF 134/70. AWAITING NUCLEAR IMAGING IN STABLE CONDITION.
== END | disposition home or self-care (01) ==
LOC: CARD 10-13 15:17
DX: J44.9 Chronic obstructive pulmonary disease, unspecified (principal); R06.02 Shortness of breath; I10 Essential (primary) hypertension; R07.9 Chest pain, unspecified; Z87.898 Personal history of other specified conditions

== ENCOUNTER → 2020-04-05 | Outpatient (CLI) | payer MEDICARE, OTHER | END | disposition home or self-care (01) | LOC: RESCLI 03:51 | DX: G47.34 Idiopathic sleep related nonobstructive alveolar hypoventilation (principal); M80.00XD Age-related osteoporosis with current pathological fracture, unspecified site, subsequent encounter for fracture with routine healing; J43.9 Emphysema, unspecified; F32.9 Major depressive disorder, single episode, unspecified; I10 Essential (primary) hypertension ==

== ENCOUNTER → 2020-08-13 | Outpatient (CLI) | payer MEDICARE, OTHER ==
[2020-08-13 12:51] LABS: HEMATOCRIT 48.7 % (37.0-47.0); MEAN CELL VOLUME 94.4 fl (81.0-99.0); MEAN CORPUSCULAR HGB 30.4 pg (27.0-31.0); MEAN CORPUSCULAR HGB CONC 32.2 g/dl (33.0-37.0); RED BLOOD COUNT 5.16 10*6/uL (4.10-5.10); RED CELL DISTRI WIDTH 14.1 % (0-14.5); WHITE BLOOD COUNT 6.6 10*3/uL (4.8-10.8)
[2020-08-13 12:52] LABS: BASO # 0.1 10*3/uL (0.0-0.1); BASO % 0.8 % (0.0-1.0); EOS # 0.1 10*3/uL (0.0-0.4); EOS % 1.2 % (1.0-4.0); LYMPH # 1.6 10*3/uL (1.3-4.4); LYMPH % 23.5 % (27.0-41.0); MEAN PLATELET VOLUME 10.1 fl (9.6-12.3); MONO # 0.4 10*3/uL (0.1-1.0); MONO % 6.6 % (3.0-9.0); NEUT # 4.5 10*3/uL (2.3-7.9); NEUT % 67.7 % (47.0-73.0); PLATELET COUNT AUTOMATED 168 10*3/uL (130-400)
[2020-08-13 13:01] LABS: ALBUMIN 3.5 gm/dl (3.1-4.5); ALKALINE PHOSPHATASE 69 U/L (45-117); BUN 19 mg/dl (7-24); CHLORIDE 108 mmol/L (98-107); CREATININE 1.05 mg/dL (0.55-1.02); POTASSIUM 4.2 mmol/L (3.5-5.1); SGOT/AST 12 IU/L (3-35); SGPT/ALT 22 U/L (12-78); SODIUM 141 mmol/L (136-145); TOTAL PROTEIN 6.4 gm/dL (6.4-8.2)
== END | disposition home or self-care (01) ==
LOC: LAB 12:03
PROVIDERS: Student in an Organized Health Care Education/Training Program; ATTEND Internal Medicine Nephrology
DX: I10 Essential (primary) hypertension (principal); E55.9 Vitamin D deficiency, unspecified; G47.34 Idiopathic sleep related nonobstructive alveolar hypoventilation

== ENCOUNTER → 2020-08-21 | Outpatient (CLI) | payer MEDICARE, OTHER | END | disposition home or self-care (01) | LOC: RESCLI 01:02 | PROVIDERS: ATTEND Internal Medicine | DX: G47.34 Idiopathic sleep related nonobstructive alveolar hypoventilation (principal); J43.9 Emphysema, unspecified; M80.00XD Age-related osteoporosis with current pathological fracture, unspecified site, subsequent encounter for fracture with routine healing; E55.9 Vitamin D deficiency, unspecified; F41.9 Anxiety disorder, unspecified; F32.9 Major depressive disorder, single episode, unspecified; I10 Essential (primary) hypertension; Z79.899 Other long term (current) drug therapy; Z88.0 Allergy status to penicillin ==

== ENCOUNTER → 2021-02-15 | Outpatient (CLI) | payer MEDICARE, OTHER | END | disposition home or self-care (01) | LOC: RESCLI 01:47 | PROVIDERS: ATTEND Internal Medicine | DX: J43.9 Emphysema, unspecified (principal); G47.34 Idiopathic sleep related nonobstructive alveolar hypoventilation; I10 Essential (primary) hypertension; F32.9 Major depressive disorder, single episode, unspecified; E55.9 Vitamin D deficiency, unspecified; J01.10 Acute frontal sinusitis, unspecified; R06.00 Dyspnea, unspecified; M81.0 Age-related osteoporosis without current pathological fracture; Z87.890 Personal history of sex reassignment; Z79.899 Other long term (current) drug therapy; Z98.890 Other specified postprocedural states; Z88.0 Allergy status to penicillin ==

== ENCOUNTER → 2021-03-04 | Outpatient (CLI) | payer MEDICARE, OTHER ==
[2021-03-04 10:16] LABS: BASO # 0.1 10*3/uL (0.0-0.1); BASO % 1.4 % (0.0-1.0); EOS # 0.1 10*3/uL (0.0-0.4); EOS % 1.8 % (1.0-4.0); HEMATOCRIT 47.2 % (37.0-47.0); LYMPH # 1.4 10*3/uL (1.3-4.4); LYMPH % 23.9 % (27.0-41.0); MEAN CELL VOLUME 95.4 fl (81.0-99.0); MEAN CORPUSCULAR HGB 30.3 pg (27.0-31.0); MEAN CORPUSCULAR HGB CONC 31.8 g/dl (33.0-37.0); MEAN PLATELET VOLUME 9.8 fl (9.6-12.3); MONO # 0.5 10*3/uL (0.1-1.0); MONO % 7.9 % (3.0-9.0); NEUT # 3.7 10*3/uL (2.3-7.9); PLATELET COUNT AUTOMATED 162 10*3/uL (130-400); RED BLOOD COUNT 4.95 10*6/uL (4.10-5.10); RED CELL DISTRI WIDTH 14.6 % (0-14.5); WHITE BLOOD COUNT 5.7 10*3/uL (4.8-10.8)
[2021-03-04 10:33] LABS: ALBUMIN 3.5 gm/dl (3.1-4.5); ALKALINE PHOSPHATASE 74 U/L (45-117); BUN 24 mg/dl (7-24); CHLORIDE 110 mmol/L (98-107); CHOLESTEROL 182 mg/dL (<200); CREATININE 0.96 mg/dL (0.55-1.02); LDL CHOLESTEROL 90 mg/dL (9-159); POTASSIUM 4.5 mmol/L (3.5-5.1); SGOT/AST 17 IU/L (3-35); SGPT/ALT 18 U/L (12-78); SODIUM 139 mmol/L (136-145); TOTAL PROTEIN 6.7 gm/dL (6.4-8.2); TRIGLYCERIDES 63 mg/dl (<150)
== END | disposition home or self-care (01) ==
LOC: LAB 09:59
PROVIDERS: Student in an Organized Health Care Education/Training Program; ATTEND Internal Medicine Nephrology
DX: I10 Essential (primary) hypertension (principal); F32.9 Major depressive disorder, single episode, unspecified; E55.9 Vitamin D deficiency, unspecified

== ENCOUNTER → 2021-03-07 | Outpatient (CLI) | payer MEDICARE, OTHER | END | disposition home or self-care (01) | LOC: RAD 13:45 | PROVIDERS: ATTEND Student in an Organized Health Care Education/Training Program | DX: M80.00XD Age-related osteoporosis with current pathological fracture, unspecified site, subsequent encounter for fracture with routine healing (principal); Z78.0 Asymptomatic menopausal state ==

== ENCOUNTER → 2021-03-08 | Outpatient (CLI) | payer MEDICARE, OTHER | END | disposition home or self-care (01) | LOC: RESCLI 02:26 | PROVIDERS: ATTEND Student in an Organized Health Care Education/Training Program | DX: I10 Essential (primary) hypertension (principal); F32.9 Major depressive disorder, single episode, unspecified; J43.9 Emphysema, unspecified; G47.34 Idiopathic sleep related nonobstructive alveolar hypoventilation; F41.9 Anxiety disorder, unspecified; J01.10 Acute frontal sinusitis, unspecified; M80.00XD Age-related osteoporosis with current pathological fracture, unspecified site, subsequent encounter for fracture with routine healing; Z79.899 Other long term (current) drug therapy; Z88.0 Allergy status to penicillin; Z87.891 Personal history of nicotine dependence; Z90.710 Acquired absence of both cervix and uterus; Z98.890 Other specified postprocedural states ==

== ENCOUNTER 2021-03-14 08:02 | Inpatient (IN) | payer MEDICARE, OTHER ==
[~2021-03-14] VITALS: Ht 152.4 cm; Wt 44.9 kg
[2021-03-14 08:25] LABS: BASO % 0.7 % (0.0-1.0); EOS # 0.1 10*3/uL (0.0-0.4); EOS % 0.9 % (1.0-4.0); HEMATOCRIT 50.1 % (37.0-47.0); LYMPH # 1.8 10*3/uL (1.3-4.4); LYMPH % 32.4 % (27.0-41.0); MEAN CELL VOLUME 93.5 fl (81.0-99.0); MEAN CORPUSCULAR HGB CONC 32.1 g/dl (33.0-37.0); MEAN PLATELET VOLUME 9.6 fl (9.6-12.3); MONO # 0.7 10*3/uL (0.1-1.0); MONO % 12.2 % (3.0-9.0); NEUT # 2.9 10*3/uL (2.3-7.9); NEUT % 53.4 % (47.0-73.0); PLATELET COUNT AUTOMATED 142 10*3/uL (130-400); RED BLOOD COUNT 5.36 10*6/uL (4.10-5.10); RED CELL DISTRI WIDTH 14.8 % (0-14.5); WHITE BLOOD COUNT 5.4 10*3/uL (4.8-10.8)
[2021-03-14 08:27] VITALS: BP 166/90
[2021-03-14 08:42] LABS: ALBUMIN 3.7 gm/dl (3.1-4.5); ALKALINE PHOSPHATASE 92 U/L (45-117); BUN 14 mg/dl (7-24); CHLORIDE 103 mmol/L (98-107); CREATININE 0.97 mg/dL (0.55-1.02); POTASSIUM 4.3 mmol/L (3.5-5.1); SGOT/AST 21 IU/L (3-35); SGPT/ALT 21 U/L (12-78); SODIUM 133 mmol/L (136-145); TOTAL PROTEIN 7.1 gm/dL (6.4-8.2)
[2021-03-14 08:46] LABS: TROPONIN I < 0.015 ng/ml (<0.045)
[2021-03-14 08:53] VITALS: BP 144/76
[2021-03-14 10:11] VITALS: BP 132/78
[2021-03-14 12:00] VITALS: BP 129/64
[2021-03-14 16:00] VITALS: BP 125/66
[2021-03-14 20:00] VITALS: BP 128/62
[2021-03-15] VITALS: BP 122/65
[2021-03-15 06:52] LABS: HEMATOCRIT 42.8 % (37.0-47.0); LYMPH % 17.7 % (27.0-41.0); MEAN CELL VOLUME 92.8 fl (81.0-99.0); MEAN CORPUSCULAR HGB 30.2 pg (27.0-31.0); MEAN CORPUSCULAR HGB CONC 32.5 g/dl (33.0-37.0); MEAN PLATELET VOLUME 10.1 fl (9.6-12.3); MONO # 0.5 10*3/uL (0.1-1.0); MONO % 9.7 % (3.0-9.0); NEUT % 72.4 % (47.0-73.0); PLATELET COUNT AUTOMATED 130 10*3/uL (130-400); RED BLOOD COUNT 4.61 10*6/uL (4.10-5.10); RED CELL DISTRI WIDTH 14.6 % (0-14.5); WHITE BLOOD COUNT 5.5 10*3/uL (4.8-10.8)
[2021-03-15 07:08] LABS: CHLORIDE 109 mmol/L (98-107); POTASSIUM 4.6 mmol/L (3.5-5.1); SODIUM 137 mmol/L (136-145)
[2021-03-15 07:17] LABS: ALKALINE PHOSPHATASE 71 U/L (45-117); BUN 23 mg/dl (7-24); CHOLESTEROL 159 mg/dL (<200); CREATININE 0.73 mg/dL (0.55-1.02); FREE T4 0.99 ng/dl (0.76-1.46); LDL CHOLESTEROL 72 mg/dL (9-159); SGOT/AST 18 IU/L (3-35); SGPT/ALT 17 U/L (12-78); THYROID STIM HORMONE (HS) 0.463 uIU/ml (0.358-4.75); TOTAL PROTEIN 5.9 gm/dL (6.4-8.2); TRIGLYCERIDES 70 mg/dl (<150)
[2021-03-15 07:45] LABS: VITAMIN D, 25-HYDROXY 40.8 ng/mL (30-100)
[2021-03-15 07:47] VITALS: BP 106/57
[2021-03-15 11:04] VITALS: BP 123/60
[2021-03-15 16:00] VITALS: BP 118/60
[2021-03-15 20:00] VITALS: BP 137/60
[2021-03-16] VITALS: BP 115/60
[2021-03-16 08:00] VITALS: BP 137/73
[2021-03-16 12:00] VITALS: BP 113/60
[2021-03-16 16:00] VITALS: BP 124/64
[2021-03-16 20:00] VITALS: BP 138/75
[2021-03-17] VITALS: BP 140/79
[2021-03-17 08:00] VITALS: BP 141/77
[2021-03-17] MEDS ORDERED: DOXYCYCLINE100 M3 PO (11:28)
[2021-03-17] MEDS ORDERED: PREDNISONE10 MG PO (11:28)
== END 2021-03-17 13:16 | disposition home or self-care (01) | DRG 871 ==
LOC: ED 08:02 → EDHOLD 09:14 → 5E 09:14
PROVIDERS: Emergency Medicine; Family Medicine; ADMIT Student in an Organized Health Care Education/Training Program; ATTEND Student in an Organized Health Care Education/Training Program
DX: A41.9 Sepsis, unspecified organism (principal); J96.01 Acute respiratory failure with hypoxia; J18.9 Pneumonia, unspecified organism; J44.1 Chronic obstructive pulmonary disease with (acute) exacerbation; E87.2 Acidosis; E87.1 Hypo-osmolality and hyponatremia; R65.20 Severe sepsis without septic shock; E83.41 Hypermagnesemia; M81.0 Age-related osteoporosis without current pathological fracture; D75.1 Secondary polycythemia; R73.9 Hyperglycemia, unspecified; Z90.710 Acquired absence of both cervix and uterus; Z90.49 Acquired absence of other specified parts of digestive tract; Z87.891 Personal history of nicotine dependence; Z82.3 Family history of stroke; Z82.49 Family history of ischemic heart disease and other diseases of the circulatory system; Z88.0 Allergy status to penicillin; Z88.1 Allergy status to other antibiotic agents; Z79.51 Long term (current) use of inhaled steroids; Z79.899 Other long term (current) drug therapy

== ENCOUNTER → 2021-04-05 | Outpatient (CLI) | payer MEDICARE, OTHER | END | disposition home or self-care (01) | LOC: RESCLI 00:37 | PROVIDERS: ATTEND Internal Medicine | DX: J44.1 Chronic obstructive pulmonary disease with (acute) exacerbation (principal); M81.0 Age-related osteoporosis without current pathological fracture; G47.34 Idiopathic sleep related nonobstructive alveolar hypoventilation; I10 Essential (primary) hypertension; F32.9 Major depressive disorder, single episode, unspecified; E55.9 Vitamin D deficiency, unspecified; F41.0 Panic disorder [episodic paroxysmal anxiety]; J01.10 Acute frontal sinusitis, unspecified; Z88.0 Allergy status to penicillin; Z90.710 Acquired absence of both cervix and uterus; Z98.890 Other specified postprocedural states; Z79.899 Other long term (current) drug therapy ==

== ENCOUNTER → 2021-07-05 | Outpatient (CLI) | payer MEDICARE, OTHER | END | disposition home or self-care (01) | LOC: RESCLI 00:39 | PROVIDERS: ATTEND Internal Medicine | DX: M81.0 Age-related osteoporosis without current pathological fracture (principal); G47.34 Idiopathic sleep related nonobstructive alveolar hypoventilation; J43.9 Emphysema, unspecified; I10 Essential (primary) hypertension; F30.9 Manic episode, unspecified; E55.9 Vitamin D deficiency, unspecified; Z88.0 Allergy status to penicillin; Z79.899 Other long term (current) drug therapy; Z98.890 Other specified postprocedural states; Z90.49 Acquired absence of other specified parts of digestive tract; Z90.710 Acquired absence of both cervix and uterus ==

== ENCOUNTER → 2021-08-21 | Outpatient (CLI) | payer MEDICARE, OTHER | END | disposition home or self-care (01) | LOC: COVID19 15:36 | PROVIDERS: ATTEND Internal Medicine | DX: U07.1 COVID-19 (principal) ==

== ENCOUNTER 2021-08-26 15:28 | Emergency (ER) | payer MEDICARE, OTHER ==
[2021-08-26 18:51] LABS: HEMATOCRIT 47.1 % (37.0-47.0); LYMPH # 0.6 10*3/uL (1.3-4.4); LYMPH % 17.3 % (27.0-41.0); MEAN CELL VOLUME 90.6 fl (81.0-99.0); MEAN CORPUSCULAR HGB 30.2 pg (27.0-31.0); MEAN CORPUSCULAR HGB CONC 33.3 g/dl (33.0-37.0); MEAN PLATELET VOLUME 10.5 fl (9.6-12.3); MONO # 0.3 10*3/uL (0.1-1.0); MONO % 9.5 % (3.0-9.0); NEUT # 2.5 10*3/uL (2.3-7.9); NEUT % 72.6 % (47.0-73.0); PLATELET COUNT AUTOMATED 101 10*3/uL (130-400); RED CELL DISTRI WIDTH 14.3 % (0-14.5); WHITE BLOOD COUNT 3.5 10*3/uL (4.8-10.8)
[2021-08-26 19:03] LABS: ACT PARTIAL THROMBO TIME 32.5 SECONDS (20.0-32.1)
[2021-08-26 19:23] LABS: ALBUMIN 3.1 gm/dl (3.1-4.5); CREATININE 1.47 mg/dL (0.55-1.02); TOTAL PROTEIN 6.5 gm/dL (6.4-8.2)
== END 2021-08-26 21:25 | disposition home or self-care (01) ==
LOC: ED 15:28
PROVIDERS: Emergency Medicine
DX: S70.01XA Contusion of right hip, initial encounter (principal); U07.1 COVID-19; N17.9 Acute kidney failure, unspecified; J44.9 Chronic obstructive pulmonary disease, unspecified; Z88.0 Allergy status to penicillin; Z88.1 Allergy status to other antibiotic agents; Z79.899 Other long term (current) drug therapy; Z87.891 Personal history of nicotine dependence; W18.39XA Other fall on same level, initial encounter; Y93.89 Activity, other specified; Y92.89 Other specified places as the place of occurrence of the external cause; Y99.8 Other external cause status

== ENCOUNTER → 2022-01-10 | Outpatient (CLI) | payer MEDICARE, OTHER ==
[2022-01-10 14:34] LABS: BASO # 0.1 10*3/uL (0.0-0.1); BASO % 0.9 % (0.0-1.0); EOS # 0.2 10*3/uL (0.0-0.4); EOS % 2.2 % (1.0-4.0); LYMPH % 29.4 % (27.0-41.0); MEAN CELL VOLUME 91.9 fl (81.0-99.0); MEAN CORPUSCULAR HGB 30.8 pg (27.0-31.0); MEAN CORPUSCULAR HGB CONC 33.5 g/dl (33.0-37.0); MEAN PLATELET VOLUME 9.7 fl (9.6-12.3); MONO # 0.4 10*3/uL (0.1-1.0); MONO % 6.5 % (3.0-9.0); NEUT # 4.1 10*3/uL (2.3-7.9); NEUT % 60.9 % (47.0-73.0); PLATELET COUNT AUTOMATED 163 10*3/uL (130-400); RED BLOOD COUNT 5.33 10*6/uL (4.10-5.10); RED CELL DISTRI WIDTH 13.5 % (0-14.5); WHITE BLOOD COUNT 6.8 10*3/uL (4.8-10.8)
[2022-01-10 14:40] LABS: ALKALINE PHOSPHATASE 69 U/L (45-117); BUN 17 mg/dl (7-24); CHLORIDE 105 mmol/L (98-107); CHOLESTEROL 218 mg/dL (<200); CREATININE 1.04 mg/dL (0.55-1.02); LDL CHOLESTEROL 96 mg/dL (9-159); POTASSIUM 4.3 mmol/L (3.5-5.1); SGOT/AST 19 IU/L (3-35); SODIUM 138 mmol/L (136-145); TRIGLYCERIDES 86 mg/dl (<150)
[2022-01-10 14:47] LABS: SGPT/ALT 18 U/L (12-78)
[2022-01-11 08:08] LABS: RHEUMATOID FACTOR 10.7 IU/mL (<14.0)
[2022-01-11 16:07] LABS: ANTI-DSDNA ANTIBODIES <1 IU/mL (0-9)
== END | disposition home or self-care (01) ==
LOC: RESCLI 00:45
PROVIDERS: Internal Medicine; ATTEND Internal Medicine
DX: F32.9 Major depressive disorder, single episode, unspecified (principal); G47.34 Idiopathic sleep related nonobstructive alveolar hypoventilation; M25.50 Pain in unspecified joint; M81.0 Age-related osteoporosis without current pathological fracture; E55.9 Vitamin D deficiency, unspecified; J43.9 Emphysema, unspecified; Z79.899 Other long term (current) drug therapy; Z88.0 Allergy status to penicillin

== ENCOUNTER 2022-06-28 18:09 | Emergency (ER) | payer MEDICARE, OTHER ==
[~2022-06-28] VITALS: Ht 152.4 cm; Wt 45.4 kg
[2022-06-28 19:06] LABS: BASO % 0.7 % (0.0-1.0); EOS # 0.1 10*3/uL (0.0-0.4); HEMATOCRIT 46.3 % (37.0-47.0); LYMPH # 1.4 10*3/uL (1.3-4.4); MEAN CELL VOLUME 90.6 fl (81.0-99.0); MEAN CORPUSCULAR HGB 30.5 pg (27.0-31.0); MEAN CORPUSCULAR HGB CONC 33.7 g/dl (33.0-37.0); MEAN PLATELET VOLUME 9.6 fl (9.6-12.3); MONO # 0.5 10*3/uL (0.1-1.0); MONO % 8.6 % (3.0-9.0); NEUT # 4.1 10*3/uL (2.3-7.9); NEUT % 66.5 % (47.0-73.0); NUCLEATED RED BLOOD CELL 0.5 % (0.0-0.0); PLATELET COUNT AUTOMATED 144 10*3/uL (130-400); RED BLOOD COUNT 5.11 10*6/uL (4.10-5.10); RED CELL DISTRI WIDTH 13.7 % (0-14.5); WHITE BLOOD COUNT 6.1 10*3/uL (4.8-10.8)
[2022-06-28 19:24] LABS: ACT PARTIAL THROMBO TIME 28.5 SECONDS (20.0-32.1)
[2022-06-28 19:28] LABS: CREATININE 1.08 mg/dL (0.55-1.02); POTASSIUM 4.7 mmol/L (3.5-5.1); TOTAL PROTEIN 6.5 gm/dL (6.4-8.2)
== END 2022-06-28 23:43 | disposition home or self-care (01) ==
LOC: ED 18:09
PROVIDERS: Internal Medicine
DX: S22.060A Wedge compression fracture of T7-T8 vertebra, initial encounter for closed fracture (principal); R07.89 Other chest pain; Z88.0 Allergy status to penicillin; Z88.1 Allergy status to other antibiotic agents; Z79.899 Other long term (current) drug therapy; Z90.710 Acquired absence of both cervix and uterus; Z90.49 Acquired absence of other specified parts of digestive tract; Z87.891 Personal history of nicotine dependence; X58.XXXA Exposure to other specified factors, initial encounter; Y93.89 Activity, other specified; Y92.89 Other specified places as the place of occurrence of the external cause; Y99.8 Other external cause status

== ENCOUNTER → 2022-07-04 | Outpatient (CLI) | payer MEDICARE, OTHER | END | disposition home or self-care (01) | LOC: RESCLI 00:20 | PROVIDERS: ATTEND Internal Medicine | DX: Z23 Encounter for immunization (principal); I10 Essential (primary) hypertension; M81.0 Age-related osteoporosis without current pathological fracture; G47.34 Idiopathic sleep related nonobstructive alveolar hypoventilation; E55.9 Vitamin D deficiency, unspecified; J43.9 Emphysema, unspecified; F32.9 Major depressive disorder, single episode, unspecified; M25.9 Joint disorder, unspecified; R07.1 Chest pain on breathing; Z79.899 Other long term (current) drug therapy ==

== ENCOUNTER → 2022-10-31 | Emergency (ER) | payer MEDICARE, OTHER ==
[~2022-10-31] VITALS: Wt 46.3 kg
[~2022-10-31] MED LIST changes: +CLINDAMYCIN HC300 MG PO
== END ==
LOC: ED 16:16
DX: S61.412A Laceration without foreign body of left hand, initial encounter (principal); Z88.0 Allergy status to penicillin; Z88.1 Allergy status to other antibiotic agents; Z79.899 Other long term (current) drug therapy; Z90.710 Acquired absence of both cervix and uterus; Z90.49 Acquired absence of other specified parts of digestive tract; Z98.890 Other specified postprocedural states; Z87.891 Personal history of nicotine dependence; W54.0XXA Bitten by dog, initial encounter; Y93.89 Activity, other specified; Y92.89 Other specified places as the place of occurrence of the external cause; Y99.8 Other external cause status

== ENCOUNTER 2022-12-01 09:06 | Emergency (ER) | payer MEDICARE, OTHER ==
[~2022-12-01] VITALS: Wt 46.3 kg
[2022-12-01] MEDS ORDERED: CYCLOBENZAPRINE10 MG PO (12:01)
[2022-12-01] MEDS ORDERED: HYDROCODONE-AC1 EAC1 PO (12:01)
== END 2022-12-01 12:11 | disposition home or self-care (01) ==
LOC: ED 09:06
DX: S32.018A Other fracture of first lumbar vertebra, initial encounter for closed fracture (principal); S32.038A Other fracture of third lumbar vertebra, initial encounter for closed fracture; J44.9 Chronic obstructive pulmonary disease, unspecified; M81.0 Age-related osteoporosis without current pathological fracture; Z88.0 Allergy status to penicillin; Z88.8 Allergy status to other drugs, medicaments and biological substances; Z90.711 Acquired absence of uterus with remaining cervical stump; Z90.49 Acquired absence of other specified parts of digestive tract; Z98.890 Other specified postprocedural states; Z87.891 Personal history of nicotine dependence; W19.XXXA Unspecified fall, initial encounter; Y93.89 Activity, other specified; Y92.89 Other specified places as the place of occurrence of the external cause; Y99.8 Other external cause status

== ENCOUNTER → 2022-12-05 | Outpatient (CLI) | payer MEDICARE, OTHER ==
[~2022-12-05] MED LIST changes: +HYDROCODONE-AC1 EAC1 PO
== END | disposition home or self-care (01) ==
LOC: RESCLI 13:19
PROVIDERS: ATTEND Internal Medicine
DX: S32.000S Wedge compression fracture of unspecified lumbar vertebra, sequela (principal); J43.9 Emphysema, unspecified; F32.9 Major depressive disorder, single episode, unspecified; I10 Essential (primary) hypertension; E55.9 Vitamin D deficiency, unspecified; M81.0 Age-related osteoporosis without current pathological fracture; G47.34 Idiopathic sleep related nonobstructive alveolar hypoventilation; Z88.0 Allergy status to penicillin; Z82.49 Family history of ischemic heart disease and other diseases of the circulatory system; Z90.710 Acquired absence of both cervix and uterus; Z98.890 Other specified postprocedural states; Z79.899 Other long term (current) drug therapy

== ENCOUNTER → 2022-12-10 | Outpatient (CLI) | payer MEDICARE, OTHER | END | disposition home or self-care (01) | LOC: MRI 00:59 | PROVIDERS: ATTEND Internal Medicine | DX: M47.816 Spondylosis without myelopathy or radiculopathy, lumbar region (principal); S32.000S Wedge compression fracture of unspecified lumbar vertebra, sequela; M48.061 Spinal stenosis, lumbar region without neurogenic claudication; X58.XXXS Exposure to other specified factors, sequela ==

== ENCOUNTER → 2022-12-24 | Outpatient (CLI) | payer MEDICARE, OTHER ==
[2022-12-24] VITALS (15 sets, daily range): BP systolic 113–152; BP diastolic 62–80
[2022-12-24 08:59] LABS: ACT PARTIAL THROMBO TIME 30.7 SECONDS (20.0-32.1)
== END | disposition home or self-care (01) ==
PROVIDERS: Radiology Diagnostic Radiology; ATTEND Internal Medicine
DX: S32.000A Wedge compression fracture of unspecified lumbar vertebra, initial encounter for closed fracture (principal); M81.0 Age-related osteoporosis without current pathological fracture; J43.9 Emphysema, unspecified; M84.58XA Pathological fracture in neoplastic disease, other specified site, initial encounter for fracture; F32.A Depression, unspecified; E55.9 Vitamin D deficiency, unspecified; G47.34 Idiopathic sleep related nonobstructive alveolar hypoventilation; Z90.49 Acquired absence of other specified parts of digestive tract; I10 Essential (primary) hypertension; Z79.899 Other long term (current) drug therapy; C41.2 Malignant neoplasm of vertebral column; Z90.710 Acquired absence of both cervix and uterus; Z88.0 Allergy status to penicillin; X58.XXXA Exposure to other specified factors, initial encounter; Y93.89 Activity, other specified; Y92.89 Other specified places as the place of occurrence of the external cause; Y99.8 Other external cause status

== ENCOUNTER → 2023-02-05 | Outpatient (CLI) | payer MEDICARE, OTHER ==
[~2023-02-05] MED LIST changes: +MELOXICAM5 MG PO; +Vibra-Tab100 MG PO
== END | disposition home or self-care (01) ==
LOC: RESCLI 01:30
PROVIDERS: ATTEND Family Medicine
DX: J43.9 Emphysema, unspecified (principal); I10 Essential (primary) hypertension; F32.9 Major depressive disorder, single episode, unspecified; M80.00XD Age-related osteoporosis with current pathological fracture, unspecified site, subsequent encounter for fracture with routine healing; Z88.1 Allergy status to other antibiotic agents; Z88.0 Allergy status to penicillin; Z87.891 Personal history of nicotine dependence; Z82.49 Family history of ischemic heart disease and other diseases of the circulatory system; Z98.890 Other specified postprocedural states; Z79.899 Other long term (current) drug therapy

== ENCOUNTER → 2023-04-21 | Outpatient (CLI) | payer MEDICARE, OTHER ==
[~2023-04-21] MED LIST changes: +APRESOLINE25 MG PO; +CALCIUM500 M1 PO; +VITAMIN D325 MCG PO
[2023-04-21 10:10] LABS: BUN 15 mg/dl (9-23); CHLORIDE 103 mmol/L (98-107); POTASSIUM 4.1 mmol/L (3.4-5.1)
== END | disposition home or self-care (01) ==
LOC: LAB 09:19
PROVIDERS: ATTEND Internal Medicine
DX: U07.1 COVID-19 (principal)

== ENCOUNTER → 2023-04-29 | Outpatient (CLI) | payer MEDICARE, OTHER | END | disposition home or self-care (01) | LOC: RESCLI 01:19 | PROVIDERS: ATTEND Student in an Organized Health Care Education/Training Program | DX: I10 Essential (primary) hypertension (principal); J43.9 Emphysema, unspecified; F32.9 Major depressive disorder, single episode, unspecified; F41.9 Anxiety disorder, unspecified; M81.0 Age-related osteoporosis without current pathological fracture; I20.8 Other forms of angina pectoris; E55.9 Vitamin D deficiency, unspecified; Z98.890 Other specified postprocedural states; Z88.0 Allergy status to penicillin; Z88.8 Allergy status to other drugs, medicaments and biological substances; Z79.899 Other long term (current) drug therapy ==

== ENCOUNTER → 2023-05-14 | Outpatient (CLI) | payer MEDICARE, OTHER | END | disposition home or self-care (01) | LOC: CP 00:15 | PROVIDERS: ATTEND Student in an Organized Health Care Education/Training Program | DX: J43.9 Emphysema, unspecified (principal) ==

== ENCOUNTER → 2023-08-07 | Outpatient (CLI) | payer MEDICARE, OTHER | END | disposition home or self-care (01) | LOC: RESCLI 02:20 | PROVIDERS: ATTEND Internal Medicine | DX: J43.9 Emphysema, unspecified (principal); E55.9 Vitamin D deficiency, unspecified; F32.9 Major depressive disorder, single episode, unspecified; I10 Essential (primary) hypertension; R63.4 Abnormal weight loss; Z88.0 Allergy status to penicillin; Z98.890 Other specified postprocedural states; Z82.49 Family history of ischemic heart disease and other diseases of the circulatory system; Z90.49 Acquired absence of other specified parts of digestive tract; Z86.16 Personal history of COVID-19; Z79.899 Other long term (current) drug therapy ==

== ENCOUNTER → 2023-11-06 | Outpatient (CLI) | payer MEDICARE, OTHER | END | disposition home or self-care (01) | LOC: RESCLI 01:35 | PROVIDERS: ATTEND Internal Medicine | DX: I12.9 Hypertensive chronic kidney disease with stage 1 through stage 4 chronic kidney disease, or unspecified chronic kidney disease (principal); N18.9 Chronic kidney disease, unspecified; J43.9 Emphysema, unspecified; M54.9 Dorsalgia, unspecified; E55.9 Vitamin D deficiency, unspecified; F32.9 Major depressive disorder, single episode, unspecified; R53.83 Other fatigue; M81.0 Age-related osteoporosis without current pathological fracture; Z90.49 Acquired absence of other specified parts of digestive tract; Z98.890 Other specified postprocedural states; Z88.0 Allergy status to penicillin; Z88.8 Allergy status to other drugs, medicaments and biological substances; Z79.899 Other long term (current) drug therapy ==

== ENCOUNTER 2024-01-04 12:04 | Emergency (ER) | payer MEDICARE, OTHER ==
[~2024-01-04] VITALS: Ht 149.8 cm; Wt 45.4 kg
[2024-01-04] MEDS ORDERED: Acetaminophen/Hydrocodone 5 MG/325 MG TABLET PO ONE (12:35)
[2024-01-04 12:44] LABS: BASO % 0.4 % (0.0-1.0); EOS # 0.1 10*3/uL (0.0-0.4); EOS % 0.8 % (1.0-4.0); HEMATOCRIT 45.5 % (37.0-47.0); LYMPH # 1.6 10*3/uL (1.3-4.4); LYMPH % 18.1 % (27.0-41.0); MEAN CELL VOLUME 92.5 fl (81.0-99.0); MEAN CORPUSCULAR HGB 30.3 pg (27.0-31.0); MEAN CORPUSCULAR HGB CONC 32.7 g/dl (33.0-37.0); MEAN PLATELET VOLUME 9.5 fl (9.6-12.3); MONO # 0.6 10*3/uL (0.1-1.0); MONO % 6.6 % (3.0-9.0); NEUT # 6.6 10*3/uL (2.3-7.9); NEUT % 73.8 % (47.0-73.0); PLATELET COUNT AUTOMATED 160 10*3/uL (130-400); RED BLOOD COUNT 4.92 10*6/uL (4.10-5.10); RED CELL DISTRI WIDTH 13.9 % (0-14.5)
[2024-01-04 12:58] LABS: BUN 14 mg/dl (9-23); CHLORIDE 102 mmol/L (98-107); POTASSIUM 3.9 mmol/L (3.4-5.1)
[2024-01-04] MEDS ORDERED: HYDROCODONE-AC1 EAC1 PO (15:24)
== END 2024-01-04 15:28 | disposition home or self-care (01) ==
LOC: ED 12:04
PROVIDERS: Physician Assistant Medical
DX: M43.8X6 Other specified deforming dorsopathies, lumbar region (principal); M25.552 Pain in left hip; J44.9 Chronic obstructive pulmonary disease, unspecified; Z88.0 Allergy status to penicillin; Z88.8 Allergy status to other drugs, medicaments and biological substances; Z90.49 Acquired absence of other specified parts of digestive tract; Z90.711 Acquired absence of uterus with remaining cervical stump; Z98.890 Other specified postprocedural states; Z87.891 Personal history of nicotine dependence; W19.XXXA Unspecified fall, initial encounter

== ENCOUNTER → 2024-03-07 | Outpatient (CLI) | payer MEDICARE, OTHER ==
[2024-03-07 11:32] LABS: BASO # 0.1 10*3/uL (0.0-0.1); BASO % 0.6 % (0.0-1.0); EOS # 0.1 10*3/uL (0.0-0.4); EOS % 0.8 % (1.0-4.0); HEMATOCRIT 47.3 % (37.0-47.0); LYMPH # 1.5 10*3/uL (1.3-4.4); LYMPH % 17.7 % (27.0-41.0); MEAN CELL VOLUME 91.7 fl (81.0-99.0); MEAN CORPUSCULAR HGB 31.4 pg (27.0-31.0); MEAN CORPUSCULAR HGB CONC 34.2 g/dl (33.0-37.0); MEAN PLATELET VOLUME 10.3 fl (9.6-12.3); MONO # 0.5 10*3/uL (0.1-1.0); MONO % 5.9 % (3.0-9.0); NEUT # 6.4 10*3/uL (2.3-7.9); NEUT % 74.8 % (47.0-73.0); PLATELET COUNT AUTOMATED 210 10*3/uL (130-400); RED BLOOD COUNT 5.16 10*6/uL (4.10-5.10); RED CELL DISTRI WIDTH 14.5 % (0-14.5); WHITE BLOOD COUNT 8.5 10*3/uL (4.8-10.8)
[2024-03-07 11:59] LABS: URINE AMPHETAMINES Negative (1000ng/ml); URINE BARBITURATES Negative (200ng/ml); URINE BENZODIAZEPINES Negative (200ng/ml); URINE CANNABINOIDS (THC) Negative (50ng/ml); URINE COCAINE Negative (300ng/ml); URINE METHADONE Negative (300ng/ml); URINE OPIATES Negative (300ng/ml); URINE PHENCYCLIDINE Negative (25ng/ml)
[2024-03-07 12:13] LABS: BUN 17 mg/dl (9-23); CHLORIDE 105 mmol/L (98-107); POTASSIUM 4.4 mmol/L (3.4-5.1)
== END | disposition home or self-care (01) ==
LOC: RESCLI 01:16
PROVIDERS: ATTEND Internal Medicine
DX: J44.1 Chronic obstructive pulmonary disease with (acute) exacerbation (principal); M81.0 Age-related osteoporosis without current pathological fracture; G25.81 Restless legs syndrome; I12.9 Hypertensive chronic kidney disease with stage 1 through stage 4 chronic kidney disease, or unspecified chronic kidney disease; N18.9 Chronic kidney disease, unspecified; K21.9 Gastro-esophageal reflux disease without esophagitis; E55.9 Vitamin D deficiency, unspecified; Z90.49 Acquired absence of other specified parts of digestive tract; Z79.899 Other long term (current) drug therapy; Z86.16 Personal history of COVID-19; Z88.8 Allergy status to other drugs, medicaments and biological substances

== ENCOUNTER → 2024-03-12 | Outpatient (CLI) | payer MEDICARE, OTHER | END | disposition home or self-care (01) | LOC: US 00:45 | PROVIDERS: ATTEND Family Medicine | DX: G25.81 Restless legs syndrome (principal); I10 Essential (primary) hypertension ==

== ENCOUNTER → 2024-03-22 | Outpatient (CLI) | payer MEDICARE, OTHER | END | disposition home or self-care (01) | LOC: RESCLI 02:20 | PROVIDERS: ATTEND Student in an Organized Health Care Education/Training Program | DX: M81.0 Age-related osteoporosis without current pathological fracture (principal); J44.1 Chronic obstructive pulmonary disease with (acute) exacerbation; I10 Essential (primary) hypertension; F41.9 Anxiety disorder, unspecified; E55.9 Vitamin D deficiency, unspecified; K21.9 Gastro-esophageal reflux disease without esophagitis; G25.81 Restless legs syndrome; Z88.0 Allergy status to penicillin; Z88.8 Allergy status to other drugs, medicaments and biological substances; Z98.890 Other specified postprocedural states; Z90.49 Acquired absence of other specified parts of digestive tract; Z79.899 Other long term (current) drug therapy ==

== ENCOUNTER 2024-05-14 17:50 | Emergency (ER) | payer MEDICARE, OTHER ==
[~2024-05-14] VITALS: Ht 147.3 cm; Wt 45.4 kg
[2024-05-14] MEDS ORDERED: Tdap Vaccine 0.5 ML SYR (Adult Vaccine) IM ONE (18:15)
[2024-05-14] MEDS ORDERED: Acetaminophen/Oxycodone 5 MG/325 MG TABLET PO ONE (19:15)
== END 2024-05-14 20:08 | disposition home or self-care (01) ==
LOC: ED 17:50
DX: S41.119A Laceration without foreign body of unspecified upper arm, initial encounter (principal); S81.819A Laceration without foreign body, unspecified lower leg, initial encounter; M25.562 Pain in left knee; M25.561 Pain in right knee; R07.81 Pleurodynia; J44.9 Chronic obstructive pulmonary disease, unspecified; Z88.0 Allergy status to penicillin; Z88.1 Allergy status to other antibiotic agents; Z90.49 Acquired absence of other specified parts of digestive tract; Z98.890 Other specified postprocedural states; Z87.891 Personal history of nicotine dependence; Z90.711 Acquired absence of uterus with remaining cervical stump; W10.9XXA Fall (on) (from) unspecified stairs and steps, initial encounter; Y93.89 Activity, other specified; Y92.89 Other specified places as the place of occurrence of the external cause; Y99.8 Other external cause status

== ENCOUNTER → 2024-05-16 | Outpatient (CLI) | payer MEDICARE, OTHER | END | disposition home or self-care (01) | LOC: RESCLI 11:40 | PROVIDERS: ATTEND Internal Medicine | DX: R93.89 Abnormal findings on diagnostic imaging of other specified body structures (principal); I10 Essential (primary) hypertension; M81.0 Age-related osteoporosis without current pathological fracture; J44.9 Chronic obstructive pulmonary disease, unspecified; Z82.49 Family history of ischemic heart disease and other diseases of the circulatory system; Z98.890 Other specified postprocedural states; Z90.49 Acquired absence of other specified parts of digestive tract; F10.90 Alcohol use, unspecified, uncomplicated; Z87.891 Personal history of nicotine dependence; Z88.0 Allergy status to penicillin; Z88.8 Allergy status to other drugs, medicaments and biological substances; Y90.9 Presence of alcohol in blood, level not specified; W19.XXXD Unspecified fall, subsequent encounter ==

== ENCOUNTER 2024-05-19 10:56 | Emergency (ER) | payer MEDICARE, OTHER ==
[~2024-05-19] VITALS: Ht 139.7 cm; Wt 45.4 kg
[2024-05-19] MEDS ORDERED: Ondansetron Hydrochloride 4 MG/2 ML VIAL IV ONE ×2 (11:30→15:35)
[2024-05-19] MEDS ORDERED: MORPHINE Sulfate 2 MG/ML SYR IV PRN (11:30)
[2024-05-19] MEDS ORDERED: SODIUM CHLORIDE 0.9% 1,000 ML IV ONE (11:35)
[2024-05-19 11:55] LABS: BASO % 0.3 % (0.0-1.0); EOS # 0.1 10*3/uL (0.0-0.4); EOS % 0.9 % (1.0-4.0); LYMPH # 1.2 10*3/uL (1.3-4.4); LYMPH % 13.1 % (27.0-41.0); MEAN CELL VOLUME 93.1 fl (81.0-99.0); MEAN CORPUSCULAR HGB 30.3 pg (27.0-31.0); MEAN CORPUSCULAR HGB CONC 32.6 g/dl (33.0-37.0); MEAN PLATELET VOLUME 9.6 fl (9.6-12.3); MONO # 0.5 10*3/uL (0.1-1.0); NEUT # 7.2 10*3/uL (2.3-7.9); NEUT % 79.3 % (47.0-73.0); PLATELET COUNT AUTOMATED 152 10*3/uL (130-400); RED BLOOD COUNT 4.62 10*6/uL (4.10-5.10); RED CELL DISTRI WIDTH 14.4 % (0-14.5); WHITE BLOOD COUNT 9.1 10*3/uL (4.8-10.8)
[2024-05-19 12:12] LABS: BUN 21 mg/dl (9-23); CHLORIDE 105 mmol/L (98-107); POTASSIUM 4.2 mmol/L (3.4-5.1)
[2024-05-19] MEDS ORDERED: HYDROmorphONE Hydrochloride 0.5 MG/0.5 ML SYRINGE IV ONE (15:35)
[2024-05-19] MEDS ORDERED: PERCOCET 5-3251 EACH PO (15:38)
== END 2024-05-19 16:05 | disposition home or self-care (01) ==
LOC: ED 10:56
PROVIDERS: Emergency Medicine
DX: S32.10XA Unspecified fracture of sacrum, initial encounter for closed fracture (principal); R07.81 Pleurodynia; J44.9 Chronic obstructive pulmonary disease, unspecified; Z88.0 Allergy status to penicillin; Z88.1 Allergy status to other antibiotic agents; Z90.49 Acquired absence of other specified parts of digestive tract; Z98.890 Other specified postprocedural states; Z90.711 Acquired absence of uterus with remaining cervical stump; Z87.891 Personal history of nicotine dependence; W19.XXXA Unspecified fall, initial encounter; Y93.89 Activity, other specified; Y92.89 Other specified places as the place of occurrence of the external cause; Y99.8 Other external cause status

== ENCOUNTER 2024-06-01 21:48 | Emergency (ER) | payer MEDICARE, OTHER ==
[~2024-06-01] VITALS: Ht 157.4 cm; Wt 46.9 kg
[2024-06-01] MEDS ORDERED: Ondansetron Hydrochloride 4 MG TAB SL ONE (22:45)
[2024-06-01] MEDS ORDERED: Acetaminophen/Hydrocodone 5 MG/325 MG TABLET PO ONE (22:45)
== END 2024-06-01 23:05 | disposition home or self-care (01) ==
LOC: ED 21:48
DX: M79.604 Pain in right leg (principal); J44.9 Chronic obstructive pulmonary disease, unspecified; Z88.0 Allergy status to penicillin; Z88.1 Allergy status to other antibiotic agents; Z90.710 Acquired absence of both cervix and uterus; Z90.49 Acquired absence of other specified parts of digestive tract; Z98.890 Other specified postprocedural states; Z87.891 Personal history of nicotine dependence; Z90.711 Acquired absence of uterus with remaining cervical stump

== ENCOUNTER → 2024-06-20 | Outpatient (CLI) | payer MEDICARE, OTHER | END | disposition home or self-care (01) | LOC: MRI 01:49 | PROVIDERS: ATTEND Orthopaedic Surgery | DX: S32.89XA Fracture of other parts of pelvis, initial encounter for closed fracture (principal); R26.89 Other abnormalities of gait and mobility; M25.551 Pain in right hip; R60.0 Localized edema; M16.0 Bilateral primary osteoarthritis of hip; X58.XXXA Exposure to other specified factors, initial encounter; Y93.89 Activity, other specified; Y92.89 Other specified places as the place of occurrence of the external cause; Y99.8 Other external cause status ==

== ENCOUNTER → 2024-06-22 | Outpatient (CLI) | payer MEDICARE, OTHER ==
[2024-06-22 12:54] LABS: ALKALINE PHOSPHATASE 195 U/L (46-116); BUN 20 mg/dl (9-23); CHLORIDE 104 mmol/L (98-107); POTASSIUM 3.6 mmol/L (3.4-5.1); SGPT/ALT 8 U/L (5-49)
== END | disposition home or self-care (01) ==
LOC: RESCLI 01:02
PROVIDERS: Internal Medicine; ATTEND Internal Medicine
DX: M81.0 Age-related osteoporosis without current pathological fracture (principal); J44.1 Chronic obstructive pulmonary disease with (acute) exacerbation; I10 Essential (primary) hypertension; F41.9 Anxiety disorder, unspecified; E55.9 Vitamin D deficiency, unspecified; K21.9 Gastro-esophageal reflux disease without esophagitis; G25.81 Restless legs syndrome; Z13.9 Encounter for screening, unspecified; T14.8XXA Other injury of unspecified body region, initial encounter; Z98.890 Other specified postprocedural states; Z79.899 Other long term (current) drug therapy; Z88.0 Allergy status to penicillin; Z88.8 Allergy status to other drugs, medicaments and biological substances; W49.09XA Other specified item causing external constriction, initial encounter; Y93.89 Activity, other specified; Y92.89 Other specified places as the place of occurrence of the external cause; Y99.8 Other external cause status

== ENCOUNTER → 2024-08-02 | Outpatient (CLI) | payer MEDICARE, OTHER ==
[2024-08-02 12:05] LABS: ALKALINE PHOSPHATASE 180 U/L (46-116); BUN 18 mg/dl (9-23); CHLORIDE 104 mmol/L (98-107); POTASSIUM 4.2 mmol/L (3.4-5.1); TOTAL PROTEIN 6.9 gm/dL (6.0-8.0)
[2024-08-02 12:15] LABS: SGPT/ALT < 7 U/L (5-49)
== END | disposition home or self-care (01) ==
LOC: RESCLI 00:41 → LAB 00:41 → RESCLI 23:09
PROVIDERS: Internal Medicine; ATTEND Internal Medicine
DX: E55.9 Vitamin D deficiency, unspecified (principal)

== ENCOUNTER → 2024-11-04 | Outpatient (CLI) | payer MEDICARE, OTHER ==
[~2024-11-04] MED LIST changes: +ASPIRIN ADULT L81 M2 PO; +DULE1ARO1 INH; +FAMOTIDINE40 MG PO; +ROPINIROLE HY0.25 MG PO; +VITAMIN D350 MCG PO
== END | disposition home or self-care (01) ==
LOC: ORTHO 01:23
PROVIDERS: ATTEND Orthopaedic Surgery
DX: S72.142D Displaced intertrochanteric fracture of left femur, subsequent encounter for closed fracture with routine healing (principal); X58.XXXD Exposure to other specified factors, subsequent encounter

== ENCOUNTER → 2024-11-14 | Outpatient (CLI) | payer MEDICARE, OTHER | END | disposition home or self-care (01) | LOC: RESCLI 00:51 | PROVIDERS: ATTEND Internal Medicine | DX: S72.142A Displaced intertrochanteric fracture of left femur, initial encounter for closed fracture (principal); M81.0 Age-related osteoporosis without current pathological fracture; I10 Essential (primary) hypertension; E55.9 Vitamin D deficiency, unspecified; L98.499 Non-pressure chronic ulcer of skin of other sites with unspecified severity; J43.9 Emphysema, unspecified; F41.9 Anxiety disorder, unspecified; K21.9 Gastro-esophageal reflux disease without esophagitis; Z79.899 Other long term (current) drug therapy; Z98.890 Other specified postprocedural states; Z88.0 Allergy status to penicillin ==

== ENCOUNTER → 2024-12-16 | Outpatient (CLI) | payer MEDICARE, OTHER | END | disposition home or self-care (01) | LOC: ORTHO 00:56 | PROVIDERS: ATTEND Orthopaedic Surgery | DX: S72.142D Displaced intertrochanteric fracture of left femur, subsequent encounter for closed fracture with routine healing (principal); X58.XXXD Exposure to other specified factors, subsequent encounter ==

== ENCOUNTER → 2025-01-03 | Outpatient (CLI) | payer MEDICARE, OTHER | LOC: RESCLI 14:41 | PROVIDERS: ATTEND Student in an Organized Health Care Education/Training Program | DX: J40 Bronchitis, not specified as acute or chronic (principal); I10 Essential (primary) hypertension; F41.9 Anxiety disorder, unspecified; F32.9 Major depressive disorder, single episode, unspecified; J43.9 Emphysema, unspecified; E55.9 Vitamin D deficiency, unspecified; K21.9 Gastro-esophageal reflux disease without esophagitis; G25.81 Restless legs syndrome ==

== ENCOUNTER 2025-01-08 10:55 | Emergency (ER) | payer MEDICARE, OTHER ==
[2025-01-08] MEDS ORDERED: methylPREDNISolone sod succ 125 MG VIAL IV ONE (11:40)
[2025-01-08 11:55] LABS: BASO % 0.3 % (0.0-1.0); EOS % 0.2 % (1.0-4.0); HEMATOCRIT 43.4 % (37.0-47.0); MEAN CELL VOLUME 90.8 fl (81.0-99.0); MEAN CORPUSCULAR HGB 29.1 pg (27.0-31.0); MEAN PLATELET VOLUME 9.4 fl (9.6-12.3); MONO # 0.6 10*3/uL (0.1-1.0); MONO % 5.9 % (3.0-9.0); NEUT # 8.5 10*3/uL (2.3-7.9); NEUT % 79.7 % (47.0-73.0); PLATELET COUNT AUTOMATED 197 10*3/uL (130-400); RED BLOOD COUNT 4.78 10*6/uL (4.10-5.10); RED CELL DISTRI WIDTH 14.6 % (0-14.5); WHITE BLOOD COUNT 10.7 10*3/uL (4.8-10.8)
[2025-01-08] MEDS ORDERED: Water, Sterile 10 ML VIAL ONE (12:04)
[2025-01-08 12:12] LABS: BUN 23 mg/dl (9-23); CHLORIDE 99 mmol/L (98-107); POTASSIUM 4.4 mmol/L (3.4-5.1)
[2025-01-08] MEDS ORDERED: VIBRAMYCIN100 MG PO (12:19)
[2025-01-08] MEDS ORDERED: PREDNISONE50 MG PO (12:19)
== END 2025-01-08 12:38 | disposition home or self-care (01) ==
LOC: ED 10:55
PROVIDERS: Physician Assistant Medical
DX: J44.1 Chronic obstructive pulmonary disease with (acute) exacerbation (principal); Z20.822 Contact with and (suspected) exposure to COVID-19; F32.A Depression, unspecified; I12.9 Hypertensive chronic kidney disease with stage 1 through stage 4 chronic kidney disease, or unspecified chronic kidney disease; N18.9 Chronic kidney disease, unspecified; Z88.0 Allergy status to penicillin; Z88.1 Allergy status to other antibiotic agents; Z79.82 Long term (current) use of aspirin; Z79.899 Other long term (current) drug therapy; Z90.49 Acquired absence of other specified parts of digestive tract; Z90.710 Acquired absence of both cervix and uterus; Z87.891 Personal history of nicotine dependence

== ENCOUNTER → 2025-02-08 | Outpatient (CLI) | payer MEDICARE, OTHER ==
[~2025-02-08] MED LIST changes: +PREDNISONE50 MG PO; +VIBRAMYCIN100 MG PO
== END | disposition home or self-care (01) ==
LOC: ORTHO 01:22
PROVIDERS: ATTEND Orthopaedic Surgery
DX: S72.142D Displaced intertrochanteric fracture of left femur, subsequent encounter for closed fracture with routine healing (principal); M79.652 Pain in left thigh; Z98.890 Other specified postprocedural states; X58.XXXD Exposure to other specified factors, subsequent encounter

== ENCOUNTER → 2025-03-17 | Outpatient (CLI) | payer MEDICARE, OTHER ==
[~2025-03-17] MED LIST changes: +ASPIRIN ADULT L81 M1 PO; +AVPAK AZITHROM250 M1 PO
== END | disposition home or self-care (01) ==
LOC: RESCLI 02:12
PROVIDERS: ATTEND Internal Medicine
DX: M81.0 Age-related osteoporosis without current pathological fracture (principal); I10 Essential (primary) hypertension; J43.9 Emphysema, unspecified; E55.9 Vitamin D deficiency, unspecified; N32.81 Overactive bladder; G25.81 Restless legs syndrome; K21.9 Gastro-esophageal reflux disease without esophagitis; J18.9 Pneumonia, unspecified organism; G89.29 Other chronic pain; R91.1 Solitary pulmonary nodule

== ENCOUNTER 2025-03-20 14:21 | Emergency (ER) | payer MEDICARE, OTHER ==
[~2025-03-20] VITALS: Wt 40.8 kg
[~2025-03-20 14:21] MED LIST changes: -AVPAK AZITHROM250 M1 PO
[2025-03-20] MEDS ORDERED: AZITHROMYCIN 250 MG TAB PO ONE (15:00)
[2025-03-20] MEDS ORDERED: MAGNESIUM SULFATE 50 ML IV ONE (15:00)
[2025-03-20 15:10] LABS: BASO # 0.0 10*3/uL (0.0-0.1); BASO % 0.4 % (0.0-1.0); EOS # 0.0 10*3/uL (0.0-0.4); EOS % 0.6 % (1.0-4.0); MEAN CELL VOLUME 92.7 fl (81.0-99.0); MEAN CORPUSCULAR HGB 30.0 pg (27.0-31.0); MEAN PLATELET VOLUME 9.1 fl (9.6-12.3); MONO # 0.4 10*3/uL (0.1-1.0); MONO % 6.4 % (3.0-9.0); NEUT # 4.9 10*3/uL (2.3-7.9); NEUT % 70.5 % (47.0-73.0); NUCLEATED RED BLOOD CELL 0.0 % (0.0-0.0); NUCLEATED RED BLOOD CELL 0.0 10*3/uL (0.0-0.0); PLATELET COUNT AUTOMATED 193 10*3/uL (130-400); RED CELL DISTRI WIDTH 15.8 % (0-14.5)
[2025-03-20 15:30] LABS: BUN 21 mg/dl (9-23)
[2025-03-20] MEDS ORDERED: PREDNISONE20 M1 PO (16:26)
[2025-03-20] MEDS ORDERED: AVPAK AZITHROM250 M1 PO (16:26)
== END 2025-03-20 16:46 | disposition home or self-care (01) ==
LOC: ED 14:21
PROVIDERS: Emergency Medicine
DX: J44.1 Chronic obstructive pulmonary disease with (acute) exacerbation (principal); I10 Essential (primary) hypertension; E78.5 Hyperlipidemia, unspecified; Z90.49 Acquired absence of other specified parts of digestive tract; Z90.710 Acquired absence of both cervix and uterus

== ENCOUNTER → 2025-03-22 | Outpatient (CLI) | payer MEDICARE, OTHER ==
[~2025-03-22] MED LIST changes: +AVPAK AZITHROM250 M1 PO
== END | disposition home or self-care (01) ==
LOC: ORTHO 11:52
PROVIDERS: ATTEND Orthopaedic Surgery
DX: S72.142D Displaced intertrochanteric fracture of left femur, subsequent encounter for closed fracture with routine healing (principal); M16.12 Unilateral primary osteoarthritis, left hip; Z98.890 Other specified postprocedural states; X58.XXXD Exposure to other specified factors, subsequent encounter

== ENCOUNTER 2025-08-01 14:31 | Emergency (ER) | payer MEDICARE, OTHER ==
[~2025-08-01] VITALS: Ht 149.8 cm; Wt 38.6 kg
[2025-08-01] MEDS ORDERED: Albuterol Sulf/Ipratropium 3 ML VIAL NEB ONE (15:20)
[2025-08-01 15:38] LABS: BASO # 0.0 10*3/uL (0.0-0.1); BASO % 0.5 % (0.0-1.0); EOS # 0.0 10*3/uL (0.0-0.4); EOS % 0.6 % (1.0-4.0); MEAN CELL VOLUME 93.7 fl (81.0-99.0); MEAN CORPUSCULAR HGB 30.6 pg (27.0-31.0); MEAN PLATELET VOLUME 9.4 fl (9.6-12.3); MONO # 0.4 10*3/uL (0.1-1.0); MONO % 6.2 % (3.0-9.0); NEUT # 4.8 10*3/uL (2.3-7.9); NEUT % 74.4 % (47.0-73.0); NUCLEATED RED BLOOD CELL 0.0 % (0.0-0.0); NUCLEATED RED BLOOD CELL 0.0 10*3/uL (0.0-0.0); PLATELET COUNT AUTOMATED 189 10*3/uL (130-400); RED CELL DISTRI WIDTH 13.9 % (0-14.5)
[2025-08-01 15:59] LABS: BUN 18 mg/dl (9-23)
[2025-08-01] MEDS ORDERED: PREDNISONE20 M1 PO (17:29)
[2025-08-01] MEDS ORDERED: Ipratropium Brom3 ML INH (17:29)
== END 2025-08-01 17:48 | disposition home or self-care (01) ==
LOC: ED 14:31
PROVIDERS: Emergency Medicine
DX: J44.1 Chronic obstructive pulmonary disease with (acute) exacerbation (principal); R53.1 Weakness; I10 Essential (primary) hypertension; Z87.891 Personal history of nicotine dependence; Z90.49 Acquired absence of other specified parts of digestive tract; Z90.710 Acquired absence of both cervix and uterus; Z88.0 Allergy status to penicillin; Z88.8 Allergy status to other drugs, medicaments and biological substances